=== PATIENT | male | born 1960 | race Caucasian/White ===

== ENCOUNTER 2025-05-14 00:46 | Inpatient (IN) ==
[2025-05-14] MEDS: ONDANSETRON INJ 2 MG/ML 2 ML VIAL IV STA (01:18)
[2025-05-14] MEDS: FAMOTIDINE 20MG IV PUSH 20 MG/5 ML SYR IV STA (01:22)
--- NOTE | 2025-05-14 01:23 | Emergency Department Note ---
History of Present Illness General Chief complaint: Abdominal Pain Stated complaint: Abdominal Pain Time Seen by Provider: 05/14/25 00:56 History of Present Illness This 64-year-old male presents to the ER complaining of severe abdominal pain and distention. Patient has not been here before. He states he does not take any medicines and does not go to the doctor. He denies any known liver disease. I did ask about alcohol use and does not want to talk about it. No tobacco use. Patient denies chest pain, dyspnea, fever, chills, flulike illness. Home Medications Medication Instructions Recorded Confirmed Type No Known Home Medications 05/14/25 05/14/25 History Allergies Allergy/AdvReac Type Severity Reaction Status Date / Time No Known Allergies Allergy Unknown Verified 05/14/25 03:49 Past Med/Surg History Problem List (Updated 05/14/25 @ 03:33 by Erika Parra PA-C) Pleural effusion (Acute) Abdominal pain, acute (Acute) Cirrhosis of liver with ascites (Acute) Social History Smoking Status: Never smoker Feels Safe at Home: Yes Review of Systems A total of 10 systems reviewed and were otherwise negative Physical Exam Vital Signs Vital Signs - 24 hr 05/14/25 00:51 05/14/25 00:54 05/14/25 01:00 Pulse Rate 87 88 Pulse Rate from SpO2 Sensor 89 88 Pulse Rhythm Pulse Strength Respiratory Rate 20 22 Respiratory Effort / Characteristics Respiratory Depth Respiratory Pattern Blood Pressure 113/74 Blood Pressure Mean 98 Blood Pressure Position Pulse Oximetry 95 93 Oxygen Delivery Method Sepsis Recent Fever Within 48 Hours Sepsis New/Unexplained Change in Mental Status Sepsis Action Taken by Nursing 05/14/25 01:03 05/14/25 01:10 05/14/25 01:12 Pulse Rate 89 87 Pulse Rate from SpO2 Sensor 88 Pulse Rhythm Regular Pulse Strength Normal Respiratory Rate 20 19 Respiratory Effort / Characteristics Non-Labored Spontaneous Respiratory Depth Normal Respiratory Pattern Regular Blood Pressure 113/74 Blood Pressure Mean 87 Blood Pressure Position Sitting Pulse Oximetry 93 93 93 Oxygen Delivery Method Room Air Room Air Sepsis Recent Fever Within 48 Hours No Sepsis New/Unexplained Change in Mental Status No Sepsis Action Taken by Nursing No Action Required 05/14/25 01:21 05/14/25 01:30 05/14/25 01:48 Pulse Rate 86 81 Pulse Rate from SpO2 Sensor 87 89 82 Pulse Rhythm Pulse Strength Respiratory Rate 18 16 20 Respiratory Effort / Characteristics Respiratory Depth Respiratory Pattern Blood Pressure Blood Pressure Mean Blood Pressure Position Pulse Oximetry 93 95 93 Oxygen Delivery Method Sepsis Recent Fever Within 48 Hours Sepsis New/Unexplained Change in Mental Status Sepsis Action Taken by Nursing 05/14/25 01:50 05/14/25 01:51 05/14/25 02:00 Pulse Rate 80 81 Pulse Rate from SpO2 Sensor 82 80 Pulse Rhythm Pulse Strength Respiratory Rate 17 21 Respiratory Effort / Characteristics Respiratory Depth Respiratory Pattern Blood Pressure 114/75 111/72 Blood Pressure Mean 87 85 Blood Pressure Position Pulse Oximetry 92 94 Oxygen Delivery Method Sepsis Recent Fever Within 48 Hours Sepsis New/Unexplained Change in Mental Status Sepsis Action Taken by Nursing 05/14/25 02:12 05/14/25 02:21 05/14/25 02:30 Pulse Rate 82 82 82 Pulse Rate from SpO2 Sensor 82 82 82 Pulse Rhythm Pulse Strength Respiratory Rate 19 21 22 Respiratory Effort / Characteristics Respiratory Depth Respiratory Pattern Blood Pressure 103/63 Blood Pressure Mean 76 Blood Pressure Position Pulse Oximetry 93 94 91 Oxygen Delivery Method Sepsis Recent Fever Within 48 Hours Sepsis New/Unexplained Change in Mental Status Sepsis Action Taken by Nursing 05/14/25 02:42 05/14/25 02:51 05/14/25 03:00 Pulse Rate 83 81 84 Pulse Rate from SpO2 Sensor 81 81 85 Pulse Rhythm Pulse Strength Respiratory Rate 22 26 H 23 Respiratory Effort / Characteristics Respiratory Depth Respiratory Pattern Blood Pressure 112/84 Blood Pressure Mean 93 Blood Pressure Position Pulse Oximetry 92 92 94 Oxygen Delivery Method Sepsis Recent Fever Within 48 Hours Sepsis New/Unexplained Change in Mental Status Sepsis Action Taken by Nursing VITALS: Vitals are noted on the nurse's note and reviewed by myself. Vital signs stable. GENERAL: White male pale, in no acute distress, nondiaphoretic, SKIN: Capillary reflex less than 2 seconds. HEENT: Normocephalic. PERRLA. EOMI. Nares patent. Mucous membranes moist. Neck is supple without nuchal rigidity. HEART: Regular rate and rhythm LUNGS: Clear to auscultation bilaterally without wheezes, rales or rhonchi. No retractions or accessory muscle use. ABDOMEN: Positive bowel sounds x 4. Normal tympanic percussion. Soft, distended with positive fluid wave tender to palpation, without masses or organomegaly. Lawrence sign negative. No guarding or rebound tenderness. no CVA tenderness MUSCULOSKELETAL: No gross musculoskeletal defects. NEURO: Patient was alert and oriented to person place and time. No focal neurological deficits. Course Administered Medications Fentanyl Citrate (Fentanyl Citrate Pf 100 Mcg/2 Ml Vial) 50 mcg IV Q15M PRN PRN Reason: Pain Stop: 05/28/25 01:02 Last Admin: 05/14/25 03:27 Dose: 50 mcg Documented By: Admin: 05/14/25 01:21 Dose: 50 mcg Documented By: ASHLY Albumin Human (Albumin 25%) 25 gm in 100 mls @ 50 mls/hr IV Q2H TEMO Stop: 05/14/25 06:59 Last Admin: 05/14/25 03:24 Dose: 50 mls/hr Documented By: ASHLY Discontinued Medications Furosemide (Furosemide Inj 20 Mg/2 Ml Vial) 20 mg IV ONE STA Stop: 05/14/25 03:32 Last Admin: 05/14/25 04:08 Dose: 20 mg Documented By: ASHLY Pantoprazole Sodium (Protonix) 40 mg in 10 mls @ 5 mls/min IV NOW ONE Stop: 05/14/25 01:04 Last Admin: 05/14/25 01:24 Dose: 5 mls/min Documented By: ASHLY Famotidine (Pepcid 20mg Iv Push) 20 mg in 5 mls @ 2.5 mls/min IV NOW STA Stop: 05/14/25 01:04 Last Admin: 05/14/25 01:22 Dose: 2.5 mls/min Documented By: ASHLY Ceftriaxone Sodium (Rocephin) 2,000 mg in 50 mls @ 100 mls/hr IV NOW STA Stop: 05/14/25 01:32 Last Infusion: 05/14/25 03:08 Dose: Infused Documented By: Admin: 05/14/25 01:27 Dose: 100 mls/hr Documented By: ASHLY Thiamine HCl 100 mg/ Syringe 10 mls @ 2 mls/min IV NOW STA Stop: 05/14/25 03:35 Last Admin: 05/14/25 04:08 Dose: 2 mls/min Documented By: ASHLY Ioversol (Optiray 320 125ml) 125 ml IV ONCE ONE Stop: 05/14/25 01:50 Last Admin: 05/14/25 01:49 Dose: 118 ml Documented By: MOHAN Ondansetron HCl (Ondansetron Inj 2 Mg/Ml 2 Ml Vial) 4 mg IV NOW STA Stop: 05/14/25 01:04 Last Admin: 05/14/25 01:18 Dose: 4 mg Documented By: ASHLY Medical Decision Making Medical Records Attestation: I reviewed the patient's medical records. Home Medications Current Medication List: was personally reviewed by me Laboratory Data Attestation: I reviewed the patient's lab results. 05/14/25 01:04 05/14/25 01:04 Lab Results 05/14/25 05/14/25 05/14/25 Range/Units 01:04 01:13 01:16 WBC 2.91 L (4.8-10.8) K/ul RBC 3.32 L (4.70-6.10) M/uL Hgb 10.7 L (14.0-18.0) g/dL POC Hgb 10.5 L (14.0-18.0) g/dl Hct 31.6 L (42.0-52.0) % POC Hct 31 L (42-52) % MCV 95.2 (80.0-100.0) fL MCH 32.2 (25.0-34.0) pg MCHC 33.9 (32.0-36.0) g/dL RDW Std Deviation 53.8 H (36.4-46.3) fL RDW Coeff of Shannan 15.7 H (11.5-14.5) % Plt Count 138 (130-400) K/uL MPV 8.9 L (9.4-12.4) fL Immature Gran % (Auto) 0.3 % Neut % (Auto) 55.1 % Lymph % (Auto) 29.2 % Dunn % (Auto) 12.0 % Eos % (Auto) 3.1 % Baso % (Auto) 0.3 % Neut # (Auto) 1.60 (1.40-6.50) K/uL Lymph # (Auto) 0.85 L (1.20-3.40) K/uL Dunn # (Auto) 0.35 (0.11-0.59) K/uL Eos # (Auto) 0.09 (0.00-0.50) K/uL Baso # (Auto) 0.01 (0.00-0.20) K/uL Immature Gran # (Auto) 0.01 (0.01-0.20) K/uL PT 12.4 H (9.0-12.0) Seconds INR 1.2 H (0.9-1.1) POC Sodium 135 (135-144) mmol/L Sodium 133 L (136-145) mmol/L POC Potassium 3.6 (3.3-5.0) mmol/L Potassium 3.7 (3.5-5.1) mmol/L POC Chloride 100 L (101-112) mmol/L Chloride 102 (98-107) mmol/L Carbon Dioxide 25 (21-32) mmol/L POC Total CO2 23 L (24-31) mmol/L Anion Gap 6 (3-11) POC Anion Gap 16.0 (16-25) mmol/L POC BUN 9 (7-18) mg/dl BUN 10 (6-23) mg/dl Creatinine 0.67 (0.6-1.4) mg/dl POC Creatinine 0.7 (0.6-1.3) mg/dl Est Cr Clr Drug Dosing 134.2 ml/min eGFR 104.91 BUN/Creatinine Ratio 14.9 (10-20) Glucose 104 H (70-99(Fasting)) mg/dl POC Glucose (other) 105 H (70-99) mg/dl Lactate 1.5 (0.4-2.0) mmol/L Calcium 8.8 (8.6-10.3) mg/dl POC Ioniz Calcium Enzo 1.13 (1.12-1.32) mmol/l Magnesium 1.8 (1.7-2.4) mg/dl Total Bilirubin 1.0 (0.2-1.0) mg/dl AST 26 (13-39) U/L ALT 11 (7-52) U/L Alkaline Phosphatase 69 (34-104) U/L Troponin I High Sens 3.7 (0-20) pg/ml Total Protein 6.9 (6.0-8.3) gm/dl Albumin 2.8 L (3.4-5.0) gm/dl Globulin 4.1 H (2.5-4.0) gm/dl Albumin/Globulin Ratio 0.7 L (0.9-2) Lipase 60 (11-82) U/L Procalcitonin 0.13 (0-0.5) ng/ml Ethyl Alcohol mg/dL (<10.0) mg/dl Blood Type B Negative Antibody Screen NEGATIVE 05/14/25 Range/Units 02:01 WBC (4.8-10.8) K/ul RBC (4.70-6.10) M/uL Hgb (14.0-18.0) g/dL POC Hgb (14.0-18.0) g/dl Hct (42.0-52.0) % POC Hct (42-52) % MCV (80.0-100.0) fL MCH (25.0-34.0) pg MCHC (32.0-36.0) g/dL RDW Std Deviation (36.4-46.3) fL RDW Coeff of Shannan (11.5-14.5) % Plt Count (130-400) K/uL MPV (9.4-12.4) fL Immature Gran % (Auto) % Neut % (Auto) % Lymph % (Auto) % Dunn % (Auto) % Eos % (Auto) % Baso % (Auto) % Neut # (Auto) (1.40-6.50) K/uL Lymph # (Auto) (1.20-3.40) K/uL Dunn # (Auto) (0.11-0.59) K/uL Eos # (Auto) (0.00-0.50) K/uL Baso # (Auto) (0.00-0.20) K/uL Immature Gran # (Auto) (0.01-0.20) K/uL PT (9.0-12.0) Seconds INR (0.9-1.1) POC Sodium (135-144) mmol/L Sodium (136-145) mmol/L POC Potassium (3.3-5.0) mmol/L Potassium (3.5-5.1) mmol/L POC Chloride (101-112) mmol/L Chloride (98-107) mmol/L Carbon Dioxide (21-32) mmol/L POC Total CO2 (24-31) mmol/L Anion Gap (3-11) POC Anion Gap (16-25) mmol/L POC BUN (7-18) mg/dl BUN (6-23) mg/dl Creatinine (0.6-1.4) mg/dl POC Creatinine (0.6-1.3) mg/dl Est Cr Clr Drug Dosing ml/min eGFR BUN/Creatinine Ratio (10-20) Glucose (70-99(Fasting)) mg/dl POC Glucose (other) (70-99) mg/dl Lactate (0.4-2.0) mmol/L Calcium (8.6-10.3) mg/dl POC Ioniz Calcium Enzo (1.12-1.32) mmol/l Magnesium (1.7-2.4) mg/dl Total Bilirubin (0.2-1.0) mg/dl AST (13-39) U/L ALT (7-52) U/L Alkaline Phosphatase (34-104) U/L Troponin I High Sens (0-20) pg/ml Total Protein (6.0-8.3) gm/dl Albumin (3.4-5.0) gm/dl Globulin (2.5-4.0) gm/dl Albumin/Globulin Ratio (0.9-2) Lipase (11-82) U/L Procalcitonin (0-0.5) ng/ml Ethyl Alcohol mg/dL < 10.0 (<10.0) mg/dl Blood Type Antibody Screen Imaging Data Attestation: I personally reviewed and interpreted this imaging study as follows: Radiologist's Impression: Abdomen/Pelvis CT 05/14/25 01:04 EXAM: CT abd pelvis IV con only CLINICAL HISTORY: severe abd pain TECHNIQUE: Contiguous axial images were obtained from the level of the diaphragm to the pubic symphysis with intravenous contrast. Coronal and sagittal reconstructions were likewise performed and indicated to increase the sensitivity for detecting clinically relevant pathology. If IV contrast material had not been administered, the likelihood of detecting abnormalities relevant to the patient's condition would have been substantially decreased. CT scan was performed according to ALARA (as low as reasonably achievable). COMPARISON: None. FINDINGS: Gross left pleural effusion with collapse of left lower lobes are seen. The liver appears relatively smaller in size and shows hypertrophied caudate lobe. It shows mild heterogeneous parenchyma with irregular nodular surface. Portal vein appears dilated with multiple collaterals are noted adjacent to the perigastric/peripancreatic space and its splenic hilum - suggestive of portal hypertension. The spleen appears enlarged in size measures about 16 cm Gross ascites with diffuse mesenteric congestion seen. Large umbilical hernia containing ascitic fluid. Bilateral inguinal hernia containing ascitic fluid. Enlarged prostate. The gallbladder is present. The pancreas, and adrenal glands are unremarkable. The kidneys are normal in size and attenuation. There is no hydronephrosis or perinephric fat stranding. No renal calculi or renal masses are identified. The ureters are normal in caliber and no ureteral calculi are seen. The bladder is normal in contour. No focal or diffuse bowel wall thickening or evidence of bowel obstruction is identified. No imaging evidence of appendicitis. Abdominal and pelvic vasculature is patent. No aggressive appearing osseous lesions are identified. IMPRESSION: Gross left pleural effusion with collapse of left lower lobes are seen. Cirrhosis of liver with portal hypertension and gross ascites. Splenomegaly. Large umbilical hernia containing ascitic fluid. Bilateral inguinal hernia containing ascitic fluid. Enlarged prostate. Electronically signed by eJffry Garcia 05-14-2025 03:57 AM Chest CTA 05/14/25 01:32 EXAM: CT angio chest PE protocol CLINICAL HISTORY: PE TECHNIQUE: Contiguous axial images were obtained from the neck base through the upper abdomen following intravenous administration of iodinated contrast material. Angiographic images were processed, 3D MIP images were acquired for interpretation. If IV contrast material had not been administered, the likelihood of detecting abnormalities relevant to the patient's condition would have been substantially decreased. Coronal and sagittal 3-D MIPs were likewise performed and indicated to increase the sensitivity of detectin diffuse clinically relevant pathology. CT scan was performed according to ALARA (as low as reasonable achievable). COMPARISON: none. FINDINGS: Adequate contrast bolus without evidence of pulmonary embolism. The central airways are patent. Gross left sided pleural effusion with passive collapse of left lung and mediastinal shift toward right side is seen Right lung is clear. No pleural effusion on right side. Mild ectasia of ascending aorta measuring approximately 38 x 38 mm is seen The heart, and pulmonary arteries are of normal size and configuration. There are no appreciable coronary artery and few aortic atherosclerotic calcifications. No pericardial effusion is identified. The thyroid is unremarkable. No mediastinal, hilar, or axillary lymphadenopathy is noted. No suspicious lytic or sclerotic osseous lesions are identified. Degenerative changes in visualized spine. IMPRESSION: No evidence of pulmonary embolism Gross left sided pleural effusion with passive collapse of left lung and mediastinal shift toward right side is seen Gross ascites with mild surface nodularity of liver in visualized portion of abdomen - suggest CT abdomen for complete evaluation and lab correlation for possible chronic liver parenchymal disease Electronically signed by Jeffry Garcia 05-14-2025 02:44 AM [facility] Narrative Prior records/ancillary studies reviewed. Triage Nursing notes reviewed. Additional history obtained from EMS. The patient's history was concerning for abdominal pain. Differential diagnosis: Etiologies such as spontaneous bacterial peritonitis, ascites, liver disease, appendicitis, diverticulitis, PUD, biliary pathology, UTI, pancreatitis, obstruction, mesenteric ischemia, aortic pathology, infections, inflammatory bowel disease, renal colic, as well as others were entertained. Physical examination findings: As above. ER treatment provided: An order was placed for continuous cardiac monitoring. The monitor shows a rate of 60-100 with a sinus rhythm per my Independent interpretation. Rocephin was ordered for possible SBP, Protonix, Pepcid, Zofran and morphine were ordered I did request the records from [place] and did review them. Patient had 6 L of ascites drained at his last admission. Patient states he is on no current medications but he has a long list of medicines per the [facility] report. Albumin was ordered On reassessment the patient felt better. Diagnostics interpreted by me: ECG: Ordered for upper abdominal pain EKG: Normal sinus, poor baseline, no acute ST-T wave changes, rate 88. Impression normal sinus rhythm independently interpreted by myself The labs Independently Interpreted by myself revealed anemia most likely related to his his cirrhosis. Per chart review in the [place] system he does have hepatitis and cirrhosis. Glucose 104 negative procalcitonin. Negative lactic Imaging studies: Imaging was reviewed and read by radiology Consultation: A consultation was placed with the hospitalist. The case was discussed and diagnostics were reviewed. The patient was evaluated in the ER for further treatment. Exam and history seem consistent with ascites with concerns for possible SBP with pleural effusions. This is recurrent per chart review in the [place] system. Patient had paracentesis 2 months ago at [place]. He was not forthcoming with this. I did specifically ask him if he has had this procedure before and told me no. He was tender on exam so he was given antibiotics for possible SBP. Medicine was consulted and the case was discussed. He will be admitted to the medical service.By the evaluation outlined above emergent etiologies such as appendicitis, diverticulitis, PUD, biliary pathology, UTI, pancreatitis, obstruction, mesenteric ischemia, aortic pathology, inflammatory bowel disease, renal colic, as well as others were deemed relatively unlikely. The pt informed about the findings as listed above. All questions were answered and pleased with the treatment. The chart was completed utilizing [employer] Speech voice recognition software. Grammatical errors, random word insertions, pronoun errors, and incomplete sentences are an occassional consequence of this system due to software limitations, ambient noise, and hardware issues. Any formal questions or concerns about the content, text, or information contained within the body of this dictation should be directly addressed to the physician vector control assistant for clarification. Impression & Plan Cirrhosis of liver with ascites, Abdominal pain, acute, Pleural effusion Discharge Plan Visit Data Chief Complaint: Abdominal Pain Stated Complaint: Abdominal Pain ED Provider: Nikki Clemente ED Midlevel Provider: Erika Parra Discharge Problem: Cirrhosis of liver with ascites, Abdominal pain, acute, Pleural effusion Patient Disposition: Admitted As Inpatient Condition: Fair Forms Stand Alone Forms: [employer] Prescriptions Prescriptions: No Action No Known Home Medications Referrals Referrals: PCP,NO [Primary Care Provider] - Discharge Problem: Cirrhosis of liver with ascites Qualifiers: Hepatic cirrhosis type: unspecified hepatic cirrhosis Qualified Code(s): K74.60 - Unspecified cirrhosis of liver
[2025-05-14] MEDS: PANTOprazole 40 MG/10 ML SYR IV ONE (01:24)
[2025-05-14] MEDS: cefTRIAXone SODIUM 2,000 MG/50 ML BAG IV STA (01:27)
[2025-05-14 01:43] LABS: Hematocrit (blood only) 31.6 % (42.0-52.0); Hemoglobin 10.7 g/dL (14.0-18.0); Immature Granulocytes # (auto) 0.01 K/uL (0.01-0.20); Immature Granulocytes % (auto) 0.3 %; Mean Corpuscular Hemoglobin 32.2 pg (25.0-34.0); Mean Corpuscular Volume 95.2 fL (80.0-100.0); Platelet Count 138 K/uL (130-400); RDW Standard Deviation 53.8 fL (36.4-46.3); Red Blood Count 3.32 M/uL (4.70-6.10); White Blood Count 2.91 K/ul (4.8-10.8)
[2025-05-14] MEDS: OPTIRAY 320 125ml IV ONE (01:49)
[2025-05-14 02:00] LABS: Alanine Aminotransferase 11.0 U/L (7-52); Albumin Globulin Ratio 0.7 (0.9-2); Albumin Level 2.8 gm/dl (3.4-5.0); Alkaline Phosphatase 69.0 U/L (34-104); Anion Gap 6.0 (3-11); Bilirubin,Total 1.0 mg/dl (0.2-1.0); Blood Urea Nitrogen 10.0 mg/dl (6-23); Calcium 8.8 mg/dl (8.6-10.3); Carbon Dioxide 25.0 mmol/L (21-32); Chloride 102.0 mmol/L (98-107); Creatinine Clr Calc Pharmacy 134.2 ml/min; Globulin 4.1 gm/dl (2.5-4.0); Glucose 104.0 mg/dl (70-99(Fasting)); Lipase 60.0 U/L (11-82); Magnesium 1.8 mg/dl (1.7-2.4); Potassium 3.7 mmol/L (3.5-5.1); Sodium 133.0 mmol/L (136-145); Total Protein 6.9 gm/dl (6.0-8.3)
--- NOTE | 2025-05-14 02:44 | CT Scan Report ---
EXAM: CT angio chest PE protocol CLINICAL HISTORY: PE TECHNIQUE: Contiguous axial images were obtained from the neck base through the upper abdomen following intravenous administration of iodinated contrast material. Angiographic images were processed, 3D MIP images were acquired for interpretation. If IV contrast material had not been administered, the likelihood of detecting abnormalities relevant to the patient's condition would have been substantially decreased. Coronal and sagittal 3-D MIPs were likewise performed and indicated to increase the sensitivity of detectin diffuse clinically relevant pathology. CT scan was performed according to ALARA (as low as reasonable achievable). COMPARISON: none. FINDINGS: Adequate contrast bolus without evidence of pulmonary embolism. The central airways are patent. Gross left sided pleural effusion with passive collapse of left lung and mediastinal shift toward right side is seen Right lung is clear. No pleural effusion on right side. Mild ectasia of ascending aorta measuring approximately 38 x 38 mm is seen The heart, and pulmonary arteries are of normal size and configuration. There are no appreciable coronary artery and few aortic atherosclerotic calcifications. No pericardial effusion is identified. The thyroid is unremarkable. No mediastinal, hilar, or axillary lymphadenopathy is noted. No suspicious lytic or sclerotic osseous lesions are identified. Degenerative changes in visualized spine. IMPRESSION: No evidence of pulmonary embolism Gross left sided pleural effusion with passive collapse of left lung and mediastinal shift toward right side is seen Gross ascites with mild surface nodularity of liver in visualized portion of abdomen - suggest CT abdomen for complete evaluation and lab correlation for possible chronic liver parenchymal disease Electronically signed by Jeffry Garcia 05-14-2025 02:44 AM
[2025-05-14] MEDS: ALBUMIN 25% 25 GM/100 ML VIAL IV SCH (03:24)
--- NOTE | 2025-05-14 03:30 | History & Physical Report ---
Date of Service May 14, 2025 Assessment & Plan (1) SOB (shortness of breath): Plan: Assessment and plan below following discussion of case with ED provider and reviewing patient history/pertinent normal/abnormal diagnostic test results. 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 hydrothorax hypertension, stable not on maintenance medications hyperlipidemia as per records history of PE/DVT (factor V Leiden mutation as per records), status post Xarelto SMV thrombosis as per records GERD, not on maintenance medications DM 2 currently diet controlled, well-controlled remote hemoglobin A1c of 5.5 from 2021 Acute on chronic anemia, hx chronic pancytopenia likely secondary to liver disease (mild hemoglobin drop from baseline, patient denies overt bleeding symptoms) past alcohol abuse Ongoing tobacco abuse (chewing) Admit to med/tele Diuretic Rx Diagnostic and therapeutic paracentesis Ceftriaxone and albumin for now for possible SBP GI consult re: decompensated cirrhosis Pulmonology consult re: recurrent left pleural effusion ISS BG goal 110-140, carb count coverage, update hemoglobin A1c DVT prophylaxis. SCDs Re: Thrombocytopenia Full code Text document was generated using [employer] voice recognition software. It may contain grammatical or spelling errors. Kindly contact undersigned for clarification of any documentation item in question. History of Present Illness Chief Complaint: Shortness of breath, abdominal pain/distention Primary Care Provider: NO PCP History obtained from patient and records. Medical history significant for hypertension, hyperlipidemia, history of PE/DVT status post Xarelto, SMV thrombosis as per records, factor V Leiden mutation as per records, alcoholic cirrhosis, portal hypertension, GERD, DM 2 currently diet controlled, chronic pancytopenia (baseline hemoglobin of 11), mood disorder, past alcohol abuse, current tobacco chewing, medical noncompliance. Patient has not seen PCP or taken home medications for about 2 years now due to financial constraints. Recent admitted at [facility] last March 20-2024 for decompensated cirrhosis presenting as massive ascites and large left pleural effusion. Large-volume paracenteses (6 L) and thoracenteses done as per report. Fluid analysis results unknown to patient. TTE showed no pericardial effusion and ejection fraction of 65%. Patient claims he was discharged home without home meds and explanation for reason for fluid accumulation. Last week, patient noted increasing painful abdominal distention associated with SOB. No unusual cough symptoms. No fever, no chills. Denies chest pain. Denies black or bloody stools. Last EtOH intake was years ago as per patient. EMS called to patient's home. O2 sats 88 on room air. IV Lasix, ceftriaxone and albumin administered at the ER. Medical History as above Surgical History : Knee surgery, appendectomy, tonsillectomy, hip replacement, tonsillectomy/adenoidectomy, back surgery, Family History : Heart disease, Crohn's disease, leukemia Personal/Social history : Tobacco chewing, past alcohol abuse, retired from heavy machinery equipment operation Allergies Allergy/AdvReac Type Severity Reaction Status Date / Time No Known Allergies Allergy Unknown Verified 05/14/25 03:49 Home Medications Medication Instructions Recorded Confirmed Type No Known Home Medications 05/14/25 05/14/25 History Past Med/Surg History Problem List (Updated 05/14/25 @ 05:38 by Godwin Spring MD) SOB (shortness of breath) Pleural effusion (Acute) Abdominal pain, acute (Acute) Cirrhosis of liver with ascites (Acute) Social History Smoking Status: Never smoker Tobacco Type: Smokeless Tobacco (Dip or Chew) Hx Alcohol Use: Yes Alcohol type: other Hx Substance Use: No Preferred Language: Czech Communication Ability: Effective Chief Information Officer Required: No Beliefs That Will Affect Care: None Current Living Situation: Spouse Current Living Situation Comment: with Feels Safe at Home: Yes Safety Concerns: Feels Safe At This Time Assistive Devices: None Review of Systems Review of Systems: As per HPI, all other systems reviewed and negative Physical Exam Physical Exam: GENERAL: Slightly uncomfortable, no respiratory distress SKIN: Pallor, warm HEENT: Pale palpebral conjunctivae, no ptosis, dry buccal mucosa NECK : Supple, no tenderness CHEST : Decreased breath sounds, no tenderness HEART : RRR, no obvious murmurs ABDOMEN: Marked abdominal distention, central abdominal tenderness, positive fluid wave EXTREMITIES : No LE swelling/tenderness, palpable pulses, no other conspicuous deformities noted NEUROLOGIC : Coherent, no facial asymmetry, no other gross focality Results & Data Results & Data Vital Signs (Past 12 Hours) Vital Signs Pulse Resp BP Pulse Ox O2 Del Method 05/14/25 03:00 84 23 112/84 94 05/14/25 02:51 81 26 H 92 05/14/25 02:42 83 22 92 05/14/25 02:30 82 22 103/63 91 05/14/25 02:21 82 21 94 05/14/25 02:12 82 19 93 05/14/25 02:00 81 21 111/72 94 05/14/25 01:51 80 17 92 05/14/25 01:50 114/75 05/14/25 01:48 81 20 93 05/14/25 01:30 16 95 05/14/25 01:21 86 18 93 05/14/25 01:12 87 19 93 05/14/25 01:10 93 Room Air 05/14/25 01:03 89 20 113/74 93 Room Air 05/14/25 01:00 88 22 93 05/14/25 00:54 87 20 95 05/14/25 00:51 113/74 Laboratory Results Laboratory Results WBC 2.91 K/ul (4.8-10.8) L 05/14/25 01:04 RBC 3.32 M/uL (4.70-6.10) L 05/14/25 01:04 Hgb 10.7 g/dL (14.0-18.0) L 05/14/25 01:04 POC Hgb 10.5 g/dl (14.0-18.0) L 05/14/25 01:13 Hct 31.6 % (42.0-52.0) L 05/14/25 01:04 POC Hct 31 % (42-52) L 05/14/25 01:13 MCV 95.2 fL (80.0-100.0) 05/14/25 01:04 MCH 32.2 pg (25.0-34.0) 05/14/25 01:04 MCHC 33.9 g/dL (32.0-36.0) 05/14/25 01:04 RDW Std Deviation 53.8 fL (36.4-46.3) H 05/14/25 01:04 RDW Coeff of Shannan 15.7 % (11.5-14.5) H 05/14/25 01:04 Plt Count 138 K/uL (130-400) 05/14/25 01:04 MPV 8.9 fL (9.4-12.4) L 05/14/25 01:04 Immature Gran % (Auto) 0.3 % 05/14/25 01:04 Neut % (Auto) 55.1 % 05/14/25 01:04 Lymph % (Auto) 29.2 % 05/14/25 01:04 [place] % (Auto) 12.0 % 05/14/25 01:04 Eos % (Auto) 3.1 % 05/14/25 01:04 Baso % (Auto) 0.3 % 05/14/25 01:04 Neut # (Auto) 1.60 K/uL (1.40-6.50) 05/14/25 01:04 Lymph # (Auto) 0.85 K/uL (1.20-3.40) L 05/14/25 01:04 [place] # (Auto) 0.35 K/uL (0.11-0.59) 05/14/25 01:04 Eos # (Auto) 0.09 K/uL (0.00-0.50) 05/14/25 01:04 Baso # (Auto) 0.01 K/uL (0.00-0.20) 05/14/25 01:04 Immature Gran # (Auto) 0.01 K/uL (0.01-0.20) 05/14/25 01:04 POC Sodium 135 mmol/L (135-144) 05/14/25 01:13 Sodium 133 mmol/L (136-145) L 05/14/25 01:04 POC Potassium 3.6 mmol/L (3.3-5.0) 05/14/25 01:13 Potassium 3.7 mmol/L (3.5-5.1) 05/14/25 01:04 POC Chloride 100 mmol/L (101-112) L 05/14/25 01:13 Chloride 102 mmol/L (98-107) 05/14/25 01:04 Carbon Dioxide 25 mmol/L (21-32) 05/14/25 01:04 POC Total CO2 23 mmol/L (24-31) L 05/14/25 01:13 Anion Gap 6 (3-11) 05/14/25 01:04 POC Anion Gap 16.0 mmol/L (16-25) 05/14/25 01:13 POC BUN 9 mg/dl (7-18) 05/14/25 01:13 BUN 10 mg/dl (6-23) 05/14/25 01:04 Creatinine 0.67 mg/dl (0.6-1.4) 05/14/25 01:04 POC Creatinine 0.7 mg/dl (0.6-1.3) 05/14/25 01:13 Est Cr Clr Drug Dosing 134.2 ml/min 05/14/25 01:04 eGFR 104.91 05/14/25 01:04 BUN/Creatinine Ratio 14.9 (10-20) 05/14/25 01:04 Glucose 104 mg/dl (70-99(Fasting)) H 05/14/25 01:04 POC Glucose (other) 105 mg/dl (70-99) H 05/14/25 01:13 Lactate 1.5 mmol/L (0.4-2.0) 05/14/25 01:04 Calcium 8.8 mg/dl (8.6-10.3) 05/14/25 01:04 POC Ioniz Calcium Enzo 1.13 mmol/l (1.12-1.32) 05/14/25 01:13 Magnesium 1.8 mg/dl (1.7-2.4) 05/14/25 01:04 Total Bilirubin 1.0 mg/dl (0.2-1.0) 05/14/25 01:04 AST 26 U/L (13-39) 05/14/25 01:04 ALT 11 U/L (7-52) 05/14/25 01:04 Alkaline Phosphatase 69 U/L (34-104) 05/14/25 01:04 Troponin I High Sens 3.7 pg/ml (0-20) 05/14/25 01:04 Total Protein 6.9 gm/dl (6.0-8.3) 05/14/25 01:04 Albumin 2.8 gm/dl (3.4-5.0) L 05/14/25 01:04 Globulin 4.1 gm/dl (2.5-4.0) H 05/14/25 01:04 Albumin/Globulin Ratio 0.7 (0.9-2) L 05/14/25 01:04 Lipase 60 U/L (11-82) 05/14/25 01:04 Procalcitonin 0.13 ng/ml (0-0.5) 05/14/25 01:04 Ethyl Alcohol mg/dL < 10.0 mg/dl (<10.0) 05/14/25 02:01 Blood Type B Negative 05/14/25 01:16 Antibody Screen NEGATIVE 05/14/25 01:16 Impressions Chest CTA 05/14/25 01:32 EXAM: CT angio chest PE protocol CLINICAL HISTORY: PE TECHNIQUE: Contiguous axial images were obtained from the neck base through the upper abdomen following intravenous administration of iodinated contrast material. Angiographic images were processed, 3D MIP images were acquired for interpretation. If IV contrast material had not been administered, the likelihood of detecting abnormalities relevant to the patient's condition would have been substantially decreased. Coronal and sagittal 3-D MIPs were likewise performed and indicated to increase the sensitivity of detectin diffuse clinically relevant pathology. CT scan was performed according to ALARA (as low as reasonable achievable). COMPARISON: none. FINDINGS: Adequate contrast bolus without evidence of pulmonary embolism. The central airways are patent. Gross left sided pleural effusion with passive collapse of left lung and mediastinal shift toward right side is seen Right lung is clear. No pleural effusion on right side. Mild ectasia of ascending aorta measuring approximately 38 x 38 mm is seen The heart, and pulmonary arteries are of normal size and configuration. There are no appreciable coronary artery and few aortic atherosclerotic calcifications. No pericardial effusion is identified. The thyroid is unremarkable. No mediastinal, hilar, or axillary lymphadenopathy is noted. No suspicious lytic or sclerotic osseous lesions are identified. Degenerative changes in visualized spine. IMPRESSION: No evidence of pulmonary embolism Gross left sided pleural effusion with passive collapse of left lung and mediastinal shift toward right side is seen Gross ascites with mild surface nodularity of liver in visualized portion of abdomen - suggest CT abdomen for complete evaluation and lab correlation for possible chronic liver parenchymal disease Electronically signed by Jeffry Garcia 05-14-2025 02:[address] abdomen pelvis: Gross left pleural effusion with collapse of left lower lobes are seen. Cirrhosis of liver with portal hypertension and gross ascites. Splenomegaly. Large umbilical hernia containing ascitic fluid. Bilateral inguinal hernia containing ascitic fluid. Enlarged prostate. Diagnostic Findings EKG as per my interpretation :Rate 90, junctional rhythm, normal axis, nonspecific T wave abnormalities
[2025-05-14 03:44] LABS: INR 1.2 (0.9-1.1); Prothrombin Time 12.4 Seconds (9.0-12.0)
--- NOTE | 2025-05-14 03:58 | CT Scan Report ---
EXAM: CT abd pelvis IV con only CLINICAL HISTORY: severe abd pain TECHNIQUE: Contiguous axial images were obtained from the level of the diaphragm to the pubic symphysis with intravenous contrast. Coronal and sagittal reconstructions were likewise performed and indicated to increase the sensitivity for detecting clinically relevant pathology. If IV contrast material had not been administered, the likelihood of detecting abnormalities relevant to the patient's condition would have been substantially decreased. CT scan was performed according to ALARA (as low as reasonably achievable). COMPARISON: None. FINDINGS: Gross left pleural effusion with collapse of left lower lobes are seen. The liver appears relatively smaller in size and shows hypertrophied caudate lobe. It shows mild heterogeneous parenchyma with irregular nodular surface. Portal vein appears dilated with multiple collaterals are noted adjacent to the perigastric/peripancreatic space and its splenic hilum - suggestive of portal hypertension. The spleen appears enlarged in size measures about 16 cm Gross ascites with diffuse mesenteric congestion seen. Large umbilical hernia containing ascitic fluid. Bilateral inguinal hernia containing ascitic fluid. Enlarged prostate. The gallbladder is present. The pancreas, and adrenal glands are unremarkable. The kidneys are normal in size and attenuation. There is no hydronephrosis or perinephric fat stranding. No renal calculi or renal masses are identified. The ureters are normal in caliber and no ureteral calculi are seen. The bladder is normal in contour. No focal or diffuse bowel wall thickening or evidence of bowel obstruction is identified. No imaging evidence of appendicitis. Abdominal and pelvic vasculature is patent. No aggressive appearing osseous lesions are identified. IMPRESSION: Gross left pleural effusion with collapse of left lower lobes are seen. Cirrhosis of liver with portal hypertension and gross ascites. Splenomegaly. Large umbilical hernia containing ascitic fluid. Bilateral inguinal hernia containing ascitic fluid. Enlarged prostate. Electronically signed by Jeffry Garcia 05-14-2025 03:57 AM
[2025-05-14] MEDS: THIAMINE HCL 100 MG in SYRINGE 9 ML IV STA (04:08)
[2025-05-14] MEDS: FUROSEMIDE INJ 20 MG/2 ML VIAL IV STA (04:08)
[2025-05-14] MEDS ORDERED: PROMETHAZINE 6.25 MG/50.25 ML BAG IV PRN (04:16)
[2025-05-14] MEDS ORDERED: CARBOHYDRATES FOR HYPOGLYCEMIA PO PRN (05:10)
[2025-05-14] MEDS ORDERED: GLUCOSE 40% GEL 15 GM TUBE PO PRN (05:10)
[2025-05-14] MEDS ORDERED: DEXTROSE 50% 50 ML SYRINGE IV PRN (05:10)
[2025-05-14] MEDS ORDERED: GLUCAGON FOR INJ 1 MG VIAL SQ PRN (05:10)
[2025-05-14] MEDS ORDERED: GLUCOSE 10 TAB/TUBE PO PRN (05:10)
[2025-05-14] MEDS ORDERED: ALBUT/IPRATROP 3MG/0.5MG NEB 3 ML VIAL NEB PRN (05:29)
[2025-05-14 05:31] LABS: Appearance Urine Clear (Clear); Bacteria Urine Automated None Seen (None Seen); Cast Urine Automated 0-2 /lpf (0-2); Epithelial Cell Urine Auto 0-2 /hpf (0-2); Glucose Urine UA Negative (Negative); RBC Urine Automated 0-2 /hpf (0-2); WBC Urine Automated 0-5 /hpf (0-5)
[2025-05-14] MEDS: ALBUT/IPRATROP 3MG/0.5MG NEB 3 ML VIAL NEB STA (05:45)
[2025-05-14] MEDS: POTASSIUM CHLORIDE CRTAB 20 MEQ TABCR PO STA (05:51)
[2025-05-14] MEDS: INSULIN ASPART PER UNIT CHARGE SC SCH ×2 (05:54→18:31)
[2025-05-14] MEDS: NICOTINE 14 MG/24 HR PATCH TD SCH (06:34)
[2025-05-14] MEDS: ACETAMINOPHEN 500 MG TAB PO PRN (08:02)
[2025-05-14] MEDS: ALBUMIN 25% 25 GM/100 ML VIAL IV ONE (11:13)
--- NOTE | 2025-05-14 11:14 | Ultrasound Report ---
ULTRASOUND GUIDED PARACENTESIS CLINICAL HISTORY: ascites COMPARISON STUDY: None PROCEDURE: The risks, benefits, and alternatives to the procedure were discussed with the patient inc luding the risk of bleeding, infection and injury to adjacent structures. The patient agreed to the procedure and informed written consent was obtained. Following real-time ultrasound localization, the skin was prepped and draped. Following local anesthesia with Xylocaine, the sheath paracentesis need le was inserted and approximately 8 liters of straw-colored fluid was removed by vacuum suction. The patient tolerated the procedure well and no immediate complications were evident. IMPRESSION: Ultrasound-guided paracentesis with removal of 8 liters of ascites. ACT 112: Negative or not required by law. Electronically signed by: Yash Cagle M.D. 05/14/2025 11:13 AM
--- NOTE | 2025-05-14 11:45 | Pulmonary Consultation ---
Date of Consultation May 14, 2025 Assessment & Plan (1) Dyspnea on exertion: * Large left pleural effusion with contralateral shift of the mediastinum. 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 * Discussed with the patient potential for benefit from diagnostic/therapeutic thoracentesis. * Discussed pros and cons of Thoracentesis, and potential complications. He verbalized understanding and agreement. He understands that the fluid can come back. * He doesn't recall that he had a similar procedure previously. * Will plan on draining a maximum of 2 L today to avoid pulmonary edema. (3) Cirrhosis of liver with ascites: Hepatic cirrhosis type: unspecified hepatic cirrhosis Qualified Code(s): K74.60 - Unspecified cirrhosis of liver; R18.8 - Other ascites History of Present Illness Reason for Consultation: Pleural effusion Attending Physician: Naga Olmstead MD History of Present Illness The patient is a very pleasant 64-year-old male who presented to the ED with severe abdominal pain and distention. He reported that he had not previously sought care at this facility, did not take any medications, and had not seen a physician for several years due to financial constraints. He denied any known history of liver disease and was not forthcoming about his alcohol use. On review of systems performed by the admitting physician, the patient reported shortness of breath and abdominal pain/distention. He denied chest pain, cough, fever, chills, or gastrointestinal bleeding. He had a history of recurrent ascites and pleural effusion, with a recent admission at another hospital in March 2025 for decompensated cirrhosis, during which large-volume paracentesis and thoracentesis were performed. He had not been taking any home medications and had not followed up with a PCP. Physical examination in the ED revealed a pale, well-appearing male in no acute distress, with stable vital signs. The abdomen was soft, distended, and tender to palpation, with a positive fluid wave but no rebound or guarding. Lungs were clear to auscultation bilaterally, and the patient was alert and oriented. Laboratory studies demonstrated pancytopenia (WBC 2.91, Hgb 10.7, Plt 138), mild hyponatremia (Na 133), hypoalbuminemia (albumin 2.8), and mild hyperglycemia (glucose 104-105). Liver enzymes were within normal limits, but the albumin/globulin ratio was decreased. Coagulation studies showed a mildly elevated PT/INR. Imaging included a CT angiogram of the chest, which showed a gross left-sided pleural effusion with passive collapse of the left lung and mediastinal shift to the right, but no evidence of PE. CT of the abdomen and pelvis revealed cirrhosis with portal hypertension, gross ascites, splenomegaly, large umbilical and bilateral inguinal hernias containing ascitic fluid, and an enlarged prostate. He was admitted for further management, including diuretics, diagnostic and therapeutic paracentesis, and consultations with GI and pulmonology for decompensated cirrhosis and recurrent left pleural effusion. Past medical history included HTN, HLD, prior PE/DVT (with factor V Leiden mutation), SMV thrombosis, GERD, DM2 (diet controlled), chronic pancytopenia likely secondary to liver disease, mood disorder, past alcohol abuse, and ongoing tobacco chewing. He has a history of medical noncompliance and had not taken home medications for approximately two years. Note from 05/14/2025: The patient at this time denies dyspnea at rest, but gets easily winded from minimal exertion. He denies cough or sputum production. Allergies Allergy/AdvReac Type Severity Reaction Status Date / Time No Known Allergies Allergy Unknown Verified 05/14/25 03:49 Home Medications Medication Instructions Recorded Confirmed Type No Known Home Medications 05/14/25 05/14/25 History Patient History Social History Smoking Status: Never smoker Tobacco Type: Smokeless Tobacco (Dip or Chew) Hx Alcohol Use: Yes Alcohol type: other Hx Substance Use: No Preferred Language: Croatian Communication Ability: Effective Supervisor Fireworks Assembly Required: No Beliefs That Will Affect Care: None Current Living Situation: Spouse Current Living Situation Comment: with Feels Safe at Home: Yes Safety Concerns: Feels Safe At This Time Assistive Devices: None Review of Systems Review of Systems: All systems reviewed & are unremarkable except as noted in HPI & below Physical Exam Physical Exam: General: In no acute distress, breathing room-air. Skin: Warm and dry to touch. Noobvious lesions. Eyes: Anicteric.Noconjunctival hyperemia or exudates.No periorbital edema. ENT: No oral thrush. No oropharyngeal erythema or exudates. Neck: No palpable masses or adenopathy. Respiratory: Diffusely decreased breath sounds with dullness over the left hemithorax, no wheezing or crackles. Clear breath sounds over the right hemithorax.No use of accessory muscles and no prolonged exhalation. Cardiac: Distant sounds, regular rhythm, no murmurs, no gallops, no rubs; could not appreciate JV pulse elevation. GI: Distended with positive fluid-wave, nontender. Extremities No clubbing,no cyanosis,trace edema over lower extremities. Neuro: No gross motor deficits. Seems appropriate. No facial-droop. Speech is clear. Seems able to provide consent. Results & Data Results & Data Vital Signs (Past 12 Hours) Vital Signs Temp Pulse Pulse Resp BP BP BP 05/14/25 11:40 36.3 C L 83 18 101/64 05/14/25 08:51 05/14/25 07:40 36.4 C L 85 16 110/74 05/14/25 07:26 61 05/14/25 05:58 05/14/25 05:58 36.7 C 96 H 18 117/73 05/14/25 05:48 91 H 20 05/14/25 05:10 90 05/14/25 04:32 05/14/25 04:00 86 22 118/78 05/14/25 03:30 81 21 112/77 05/14/25 03:00 84 23 112/84 05/14/25 02:51 81 26 H 05/14/25 02:42 83 22 05/14/25 02:30 82 22 103/63 05/14/25 02:21 82 21 05/14/25 02:12 82 19 05/14/25 02:00 81 21 111/72 05/14/25 01:51 80 17 05/14/25 01:50 114/75 05/14/25 01:48 81 20 05/14/25 01:30 16 05/14/25 01:21 86 18 05/14/25 01:12 87 19 05/14/25 01:10 05/14/25 01:03 89 20 113/74 05/14/25 01:00 88 22 05/14/25 00:54 87 20 05/14/25 00:51 113/74 Pulse Ox O2 Del Method 05/14/25 11:40 94 Room Air 05/14/25 08:51 Room Air 05/14/25 07:40 94 Room Air 05/14/25 07:26 05/14/25 05:58 Room Air 05/14/25 05:58 93 Room Air 05/14/25 05:48 97 Room Air 05/14/25 05:10 05/14/25 04:32 Room Air 05/14/25 04:00 95 Room Air 05/14/25 03:30 93 Room Air 05/14/25 03:00 94 05/14/25 02:51 92 05/14/25 02:42 92 05/14/25 02:30 91 05/14/25 02:21 94 05/14/25 02:12 93 05/14/25 02:00 94 05/14/25 01:51 92 05/14/25 01:50 05/14/25 01:48 93 05/14/25 01:30 95 05/14/25 01:21 93 05/14/25 01:12 93 05/14/25 01:10 93 Room Air 05/14/25 01:03 93 Room Air 05/14/25 01:00 93 05/14/25 00:54 95 05/14/25 00:51 Laboratory Results 05/14/25 05/14/25 05/14/25 05:46 05:07 02:01 WBC RBC Hgb POC Hgb Hct POC Hct MCV MCH MCHC RDW Std Deviation RDW Coeff of Shannan Plt Count MPV Immature Gran % (Auto) Neut % (Auto) Lymph % (Auto) [place] % (Auto) Eos % (Auto) Baso % (Auto) Neut # (Auto) Lymph # (Auto) [place] # (Auto) Eos # (Auto) Baso # (Auto) Immature Gran # (Auto) PT INR POC Sodium Sodium POC Potassium Potassium POC Chloride Chloride Carbon Dioxide POC Total CO2 Anion Gap POC Anion Gap POC BUN BUN Creatinine POC Creatinine Est Cr Clr Drug Dosing eGFR BUN/Creatinine Ratio Glucose POC Glucose 107 H POC Glucose (other) Lactate Calcium POC Ioniz Calcium Enzo Magnesium Total Bilirubin AST ALT Alkaline Phosphatase Troponin I High Sens Total Protein Albumin Globulin Albumin/Globulin Ratio Lipase Procalcitonin Urine Color Yellow Urine Appearance Clear Urine pH 5.5 Ur Specific [place] > 1.045 H Urine Protein Trace H Urine Glucose (UA) Negative Urine Ketones Negative Urine Blood Negative Urine Nitrite Negative Urine Bilirubin Negative Urine Urobilinogen Negative Ur Leukocyte Esterase Negative Urine WBC (Auto) 0-5 Urine RBC (Auto) 0-2 U Hyaline Cast (Auto) 0-2 U Epithel Cells (Auto) 0-2 Urine Bacteria (Auto) None Seen Urine Comment Ethyl Alcohol mg/dL < 10.0 Blood Type Antibody Screen 05/14/25 05/14/25 05/14/25 01:16 01:13 01:04 WBC 2.91 L RBC 3.32 L Hgb 10.7 L POC Hgb 10.5 L Hct 31.6 L POC Hct 31 L MCV 95.2 MCH 32.2 MCHC 33.9 RDW Std Deviation 53.8 H RDW Coeff of Shannan 15.7 H Plt Count 138 MPV 8.9 L Immature Gran % (Auto) 0.3 Neut % (Auto) 55.1 Lymph % (Auto) 29.2 [place] % (Auto) 12.0 Eos % (Auto) 3.1 Baso % (Auto) 0.3 Neut # (Auto) 1.60 Lymph # (Auto) 0.85 L [place] # (Auto) 0.35 Eos # (Auto) 0.09 Baso # (Auto) 0.01 Immature Gran # (Auto) 0.01 PT 12.4 H INR 1.2 H POC Sodium 135 Sodium 133 L POC Potassium 3.6 Potassium 3.7 POC Chloride 100 L Chloride 102 Carbon Dioxide 25 POC Total CO2 23 L Anion Gap 6 POC Anion Gap 16.0 POC BUN 9 BUN 10 Creatinine 0.67 POC Creatinine 0.7 Est Cr Clr Drug Dosing 134.2 eGFR 104.91 BUN/Creatinine Ratio 14.9 Glucose 104 H POC Glucose POC Glucose (other) 105 H Lactate 1.5 Calcium 8.8 POC Ioniz Calcium Enzo 1.13 Magnesium 1.8 Total Bilirubin 1.0 AST 26 ALT 11 Alkaline Phosphatase 69 Troponin I High Sens 3.7 Total Protein 6.9 Albumin 2.8 L Globulin 4.1 H Albumin/Globulin Ratio 0.7 L Lipase 60 Procalcitonin 0.13 Urine Color Urine Appearance Urine pH Ur Specific [place] Urine Protein Urine Glucose (UA) Urine Ketones Urine Blood Urine Nitrite Urine Bilirubin Urine Urobilinogen Ur Leukocyte Esterase Urine WBC (Auto) Urine RBC (Auto) U Hyaline Cast (Auto) U Epithel Cells (Auto) Urine Bacteria (Auto) Urine Comment Ethyl Alcohol mg/dL Blood Type B Negative Antibody Screen NEGATIVE Diagnostic Findings Abdomen/Pelvis CT 05/14/25 01:04 EXAM: CT abd pelvis IV con only CLINICAL HISTORY: severe abd pain TECHNIQUE: Contiguous axial images were obtained from the level of the diaphragm to the pubic symphysis with intravenous contrast. Coronal and sagittal reconstructions were likewise performed and indicated to increase the sensitivity for detecting clinically relevant pathology. If IV contrast material had not been administered, the likelihood of detecting abnormalities relevant to the patient's condition would have been substantially decreased. CT scan was performed according to ALARA (as low as reasonably achievable). COMPARISON: None. FINDINGS: Gross left pleural effusion with collapse of left lower lobes are seen. The liver appears relatively smaller in size and shows hypertrophied caudate lobe. It shows mild heterogeneous parenchyma with irregular nodular surface. Portal vein appears dilated with multiple collaterals are noted adjacent to the perigastric/peripancreatic space and its splenic hilum - suggestive of portal hypertension. The spleen appears enlarged in size measures about 16 cm Gross ascites with diffuse mesenteric congestion seen. Large umbilical hernia containing ascitic fluid. Bilateral inguinal hernia containing ascitic fluid. Enlarged prostate. The gallbladder is present. The pancreas, and adrenal glands are unremarkable. The kidneys are normal in size and attenuation. There is no hydronephrosis or perinephric fat stranding. No renal calculi or renal masses are identified. The ureters are normal in caliber and no ureteral calculi are seen. The bladder is normal in contour. No focal or diffuse bowel wall thickening or evidence of bowel obstruction is identified. No imaging evidence of appendicitis. Abdominal and pelvic vasculature is patent. No aggressive appearing osseous lesions are identified. IMPRESSION: Gross left pleural effusion with collapse of left lower lobes are seen. Cirrhosis of liver with portal hypertension and gross ascites. Splenomegaly. Large umbilical hernia containing ascitic fluid. Bilateral inguinal hernia containing ascitic fluid. Enlarged prostate. Electronically signed by Jeffry Garcia 05-14-2025 03:57 AM Chest CTA 05/14/25 01:32 EXAM: CT angio chest PE protocol CLINICAL HISTORY: PE TECHNIQUE: Contiguous axial images were obtained from the neck base through the upper abdomen following intravenous administration of iodinated contrast material. Angiographic images were processed, 3D MIP images were acquired for interpretation. If IV contrast material had not been administered, the likelihood of detecting abnormalities relevant to the patient's condition would have been substantially decreased. Coronal and sagittal 3-D MIPs were likewise performed and indicated to increase the sensitivity of detectin diffuse clinically relevant pathology. CT scan was performed according to ALARA (as low as reasonable achievable). COMPARISON: none. FINDINGS: Adequate contrast bolus without evidence of pulmonary embolism. The central airways are patent. Gross left sided pleural effusion with passive collapse of left lung and mediastinal shift toward right side is seen Right lung is clear. No pleural effusion on right side. Mild ectasia of ascending aorta measuring approximately 38 x 38 mm is seen The heart, and pulmonary arteries are of normal size and configuration. There are no appreciable coronary artery and few aortic atherosclerotic calcifications. No pericardial effusion is identified. The thyroid is unremarkable. No mediastinal, hilar, or axillary lymphadenopathy is noted. No suspicious lytic or sclerotic osseous lesions are identified. Degenerative changes in visualized spine. IMPRESSION: No evidence of pulmonary embolism Gross left sided pleural effusion with passive collapse of left lung and mediastinal shift toward right side is seen Gross ascites with mild surface nodularity of liver in visualized portion of abdomen - suggest CT abdomen for complete evaluation and lab correlation for possible chronic liver parenchymal disease Electronically signed by Jeffry Garcia 05-14-2025 02:44 AM Paracentesis Ultrasound 05/14/25 08:00 ULTRASOUND GUIDED PARACENTESIS CLINICAL HISTORY: ascites COMPARISON STUDY: None PROCEDURE: The risks, benefits, and alternatives to the procedure were discussed with the patient including the risk of bleeding, infection and injury to adjacent structures. The patient agreed to the procedure and informed written consent was obtained. Following real-time ultrasound localization, the skin was prepped and draped. Following local anesthesia with Xylocaine, the sheath paracentesis needle was inserted and approximately 8 liters of straw-colored fluid was removed by vacuum suction. The patient tolerated the procedure well and no immediate complications were evident. IMPRESSION: Ultrasound-guided paracentesis with removal of 8 liters of ascites. ACT 112: Negative or not required by law. Electronically signed by: Yash Cagle M.D. 05/14/2025 11:13 AM Medications Administered Home Medications Medication Instructions Recorded Confirmed Last Taken No Known Home Medications 05/14/25 05/14/25 Unknown Active Medications Generic Name Dose Route Start Last Admin Trade Name Freq PRN Reason Stop Dose Admin Acetaminophen 500 mg 05/14/25 04:16 05/14/25 08:02 Acetaminophen 500 Mg Tab PO 06/13/25 04:15 500 mg Q6H PRN Administration fever/pain Albumin Human 25 gm in 100 mls @ 50 mls/hr 05/14/25 10:31 05/14/25 11:13 Albumin 25% IV 05/14/25 12:30 50 mls/hr ONE ONE Administration Insulin Aspart 0 units 05/14/25 06:00 05/14/25 05:54 Insulin Aspart Per Unit Charge SC 06/13/25 05:59 Not Given Q6 TEMO Nicotine 1 patch 05/14/25 06:05 05/14/25 06:34 Nicotine 14 Mg/24 Hr Patch TD 06/13/25 06:04 1 patch QAM TEMO Administration Oxycodone HCl 5 mg 05/14/25 04:16 05/14/25 08:02 Oxycodone Hcl Ir 5 Mg Tab (Immediate Release) PO 05/28/25 04:15 5 mg Q4H PRN Administration Pain PG Care Time/CCT Total # of Minutes Spent Total Time Spent with Patient: Total time spent is greater than 50% in coordination of care (as documented) at patient's floor/unit and/or counseling patient: 55 minutes Coding Level of Care Code 20406 IN/OBS CONSULT LVL 3,45M Diagnoses Dyspnea on exertion R06.09 Pleural effusion J90 Cirrhosis of liver with ascites K74.60; R18.8 Hepatic cirrhosis type: unspecified hepatic cirrhosis Time Spent (min) 55
[2025-05-14] MEDS ORDERED: Nursing to Pharmacy Communication SCH (12:00)
[2025-05-14] MEDS ORDERED: ALBUMIN 25% 25 GM/100 ML VIAL IV SCH (12:00)
[2025-05-14 12:28] LABS: Albumin Peritoneal Fluid < 1.5 gm/dl
[2025-05-14 12:47] LABS: Appearance Peritoneal Fluid Clear; Color Peritoneal Fluid Yellow; Lymphocytes, Fluid 52 %; Mono,Macrophage,Mesothelial 43 %; Neutrophils, Fluid 5 %; RBC Peritoneal Fluid Auto < 2000 /uL; WBC Peritoneal Fluid Auto 63 /ul (0-300)
--- NOTE | 2025-05-14 13:08 | Gastrointestinal Consultation ---
Date of Consultation May 14, 2025 Assessment & Plan (1) Cirrhosis of liver with ascites: Patient with decompensated cirrhosis and likely hepatic hydrothorax. 8 L removed on paracentesis today. Follow-up on fluid studies. Discussed that though his MELD is 8, his cirrhosis is very decompensated and he ultimately will need referred for outpatient hepatology evaluation at the time of discharge. 2 gm Na restricted diet. Supervising Physician Co-Signing Physician Notes I personally saw and examined the patient. I have reviewed the chart and agree with the documentation provided by the PRESS OPERATOR ASSISTANT including discussion about the as sessment, treatment and plan. Briefly, 64 yo male with HTN, HLD, PE/DVT, Factor V Leiden, GERD, DM2, mood disorder, tobacco abuse, alcoholic cirrhosis, portal HTN, and alcohol abuse coupled with medical noncompliance. He presented to the ED due to abdominal distention. He was recently admitted to [facility] in March for decompensated cirrhosis, ascites, and large left pleural effusion. He required paracentesis at that time. His MELD is only 8 but is not corroborate with his level of cirrhosis. He has decompensated cirrhosis with hepatic hydrothorax and ascites of significant amount. He needs to follow-up with hepatology to see if he is a transplant candidate, a TIPS candidate, as he is only 64 years old and has stopped drinking 2 years ago. I explained to him that despite the low number his liver is failing and he has significant symptoms. He was shocked by these comments but I explained that now is the time to think about transplant given his age rather than waiting. He will speak with his about this. His does not drive but he does have some social support at home. I explained that this would require a number of appointments. He is concerned about the cost related to transplant and his liver care. As far as management for current admission is concerned, he should be on a 2000 mg sodium diet we should Lasix 40 mg and Aldactone 100 mg. We should check his kidney function and his sodium while he is on this. He needs a dietary consult. He needs alpha-fetoprotein and ultrasound alternating with MRI or CT every 6 months. Outpatient he will need a colonoscopy and an endoscopy to evaluate for varices. His hepatitis serologies are pending. We have already made an outpatient appointment with hepatology for him and I explained this to him. History of Present Illness Reason for Consultation: Decompensated cirrhosis Attending Physician: Naga Olmstead MD History of Present Illness Patient is a 64 yo male with HTN, HLD, PE/DVT, Factor V Leiden, GERD, DM2, mood disorder, tobacco abuse, alcoholic cirrhosis, portal HTN, and alcohol abuse coupled with medical noncompliance. He presented to the ED due to abdominal distention. He was recently admitted to [facility] in March for decompensated cirrhosis, ascites, and large left pleural effusion. He required paracentesis at that time. It is unclear what he was advised to do after that hospitalization and I do not have records of that stay. Over the past 1 week, he notes significant abdominal distention and SOB. He is no longer drinking alcohol and reports it has been years since his last drink. In the ED, a CT of the abdomen/pelvis was performed: IMPRESSION: Gross left pleural effusion with collapse of left lower lobes are seen. Cirrhosis of liver with portal hypertension and gross ascites. Splenomegaly. Large umbilical hernia containing ascitic fluid. Bilateral inguinal hernia containing ascitic fluid. Enlarged prostate. MELD Score currently 8. Allergies Allergy/AdvReac Type Severity Reaction Status Date / Time No Known Allergies Allergy Unknown Verified 05/14/25 03:49 Home Medications Medication Instructions Recorded Confirmed Type No Known Home Medications 05/14/25 05/14/25 History Patient History Social History Smoking Status: Never smoker Tobacco Type: Smokeless Tobacco (Dip or Chew) Hx Alcohol Use: Yes Alcohol type: other Hx Substance Use: No Preferred Language: Gabonese Communication Ability: Effective Merchandising Stock Associate Required: No Beliefs That Will Affect Care: None Current Living Situation: Spouse Current Living Situation Comment: with Feels Safe at Home: Yes Safety Concerns: Feels Safe At This Time Assistive Devices: None Review of Systems Review of Systems: Other (Patient off floor during my rounds--at paracentesis) Physical Exam Constitutional: patient off floor during my rounds Results & Data Vital Signs (Past 12 Hours) Vital Signs Temp Pulse Pulse Resp BP BP BP 05/14/25 11:40 36.3 C L 83 18 101/64 05/14/25 08:51 05/14/25 07:40 36.4 C L 85 16 110/74 05/14/25 07:26 61 05/14/25 05:58 05/14/25 05:58 36.7 C 96 H 18 117/73 05/14/25 05:48 91 H 20 05/14/25 05:10 90 05/14/25 04:32 05/14/25 04:00 86 22 118/78 05/14/25 03:30 81 21 112/77 05/14/25 03:00 84 23 112/84 05/14/25 02:51 81 26 H 05/14/25 02:42 83 22 05/14/25 02:30 82 22 103/63 05/14/25 02:21 82 21 05/14/25 02:12 82 19 05/14/25 02:00 81 21 111/72 05/14/25 01:51 80 17 05/14/25 01:50 114/75 05/14/25 01:48 81 20 05/14/25 01:30 16 05/14/25 01:21 86 18 05/14/25 01:12 87 19 05/14/25 01:10 05/14/25 01:03 89 20 113/74 Pulse Ox O2 Del Method 05/14/25 11:40 94 Room Air 05/14/25 08:51 Room Air 05/14/25 07:40 94 Room Air 05/14/25 07:26 05/14/25 05:58 Room Air 05/14/25 05:58 93 Room Air 05/14/25 05:48 97 Room Air 05/14/25 05:10 05/14/25 04:32 Room Air 05/14/25 04:00 95 Room Air 05/14/25 03:30 93 Room Air 05/14/25 03:00 94 05/14/25 02:51 92 05/14/25 02:42 92 05/14/25 02:30 91 05/14/25 02:21 94 05/14/25 02:12 93 05/14/25 02:00 94 05/14/25 01:51 92 05/14/25 01:50 05/14/25 01:48 93 05/14/25 01:30 95 05/14/25 01:21 93 05/14/25 01:12 93 05/14/25 01:10 93 Room Air 05/14/25 01:03 93 Room Air PG Care Time/CCT Total # of Minutes Spent Total Time Spent with Patient: Total time spent is greater than 50% in coordination of care (as documented) at patient's floor/unit and/or counseling patient: Coding Level of Care Code 25672 IN/OBS CONSULT LVL 4,60M Diagnoses Cirrhosis of liver with ascites K74.60; R18.8 Hepatic cirrhosis type: unspecified hepatic cirrhosis (1) Cirrhosis of liver with ascites Hepatic cirrhosis type: unspecified hepatic cirrhosis Qualified Code(s): K74.60 - Unspecified cirrhosis of liver; R18.8 - Other ascites
--- NOTE | 2025-05-14 13:32 | Procedure Note ---
Procedure Note Date of Service May 14, 2025 Principal Law Clerk: Segundo Lo MD. Indication: Symptomatic Pleural effusion Consent: Signed by patient and verified with time-out prior to procedure Anesthesia: 1% lidocaine without epinephrine local 10 cc. Procedure: Diagnostic therapeutic ultrasound-guided catheter left thoracentesis Consent was verified and time-out performed. Appropriate imaging studies were reviewed prior to the procedure. Patient was placed in a seated position and limited thoracic ultrasound was performed of the Left hemithorax. Appropriate site above the diaphragm for thoracentesis was selected. The skin was prepped and draped in normal sterile fashion. Lidocaine was used for local analgesia. Fluid was aspirated via the finder-anesthetic needle. A small skin madan was made with the scalpel and the catheter over the needle apparatus was advanced over the rib into the pleural space. Using the syringe one-way valve system, a total of 2000 mL of lorenzo-colored fluid were removed. Procedure was terminated due to reaching predetermined intended amount to be drained. The catheter was removed and observed to be intact. A sterile dressing was applied. Post procedure chest x-ray was ordered. Fluid was sent for labs, culture and cytology. Complications: None. Patient reported some chest tightness and had some cough right at the end of the procedure. Blood loss: minimal. [facility] [place]odes (Charges) Pulmonary/Thoracic Procedure 1: Pulmonary and Thoracic: 86712 Thoracentesis w/o imaging Coding CPT Codes Pulmonary/Thoracic - Pulmonary and Thoracic: 18672 Thoracentesis w/o imaging ([id number]) Additional Codes Date of Service (PG.SURGERY)
--- NOTE | 2025-05-14 13:50 | XRay Report ---
XR chest 1V portable CLINICAL HISTORY: Post left thoracentesis COMPARISON STUDY: CT earlier today. FINDINGS: There is a large left pleural effusion and consolidation at the left mid and lower lung, im proved. Skinfold artifact overlies the chest bilaterally. No pneumothorax seen. No consolidation or p leural effusion on the right. IMPRESSION: No pneumothorax seen. ACT 112: Negative or not required by law. Electronically signed by: Yash Cagle M.D. 05/14/2025 1:49 PM
[2025-05-14 14:30] LABS: Appearance Pleural Fluid Clear; Color Pleural Fluid Yellow; RBC Pleural Fluid Auto 2000 /uL; Source Pleural Fluid Left Lung; WBC Pleural Fluid Auto 68 /uL
--- NOTE | 2025-05-14 14:31 | Hospitalist Progress Note ---
Date of Service May 14, 2025 Assessment & Plan (1) SOB (shortness of breath): Plan: per admitting service notes with addendum: Assessment and plan below following discussion of case with ED provider and reviewing patient history/pertinent normal/abnormal diagnostic test results. 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 -- CT Chest, abdomen and pelvis noted -- status post paracentesis, 8 L removed, Ascites fluid studies and culture pending third dose of albumin to be given after paracentesis, total of 75 g given today -- status post paracentesis, 2 L removed, pleural fluid studies and culture pending -- Continue IV ceftriaxone GI consulted will need furosemide, spironolactone hypertension, stable not on maintenance medications hyperlipidemia as per records history of PE/DVT (factor V Leiden mutation as per records), status post Xarelto SMV thrombosis as per records GERD, not on maintenance medications DM 2 currently diet controlled, well-controlled remote hemoglobin A1c of 5.5 from 2021 Acute on chronic anemia, hx chronic pancytopenia likely secondary to liver disease (mild hemoglobin drop from baseline, patient denies overt bleeding symptoms) past alcohol abuse Ongoing tobacco abuse (chewing) DVT prophylaxis. SCDs Re: Thrombocytopenia Full code disposition Admitted to [facility] Lives at home Admission and Anticipated Discharge Date Admission Date: May 14, 2025 Subjective Seen resting in bed, sitting up, comfortable, very pleasant Just completed paracentesis states breathing has improved compared yesterday Denies abdominal pain, fevers or chills no other new symptoms. Review of Systems Review of Systems: all noted and negative except for above Physical Exam Physical Exam: General- oriented x 3, not in distress, speaks in sentences with no effort or accessory muscle use Eyes- anicteric Neck- no JVD Lungs- right lung: Clear on auscultation Left lung: Diminished breath sounds on all lung [place] Heart- normal rate, regular rhythm; no murmurs Abdomen- normal bowel sounds, Moderately distended abdomen, soft, nontender Extremities- grade 1 lower extremity edema, no calf tenderness Neuro- alert, oriented x 3; no gross focal neurologic deficits Skin- warm & dry Results & Data Results & Data Vital Signs (Past 12 Hours) Vital Signs Temp Pulse Pulse Resp BP BP BP 05/14/25 11:40 36.3 C L 83 18 101/64 05/14/25 08:51 05/14/25 07:40 36.4 C L 85 16 110/74 05/14/25 07:26 61 05/14/25 05:58 05/14/25 05:58 36.7 C 96 H 18 117/73 05/14/25 05:48 91 H 20 05/14/25 05:10 90 05/14/25 04:32 05/14/25 04:00 86 22 118/78 05/14/25 03:30 81 21 112/77 05/14/25 03:00 84 23 112/84 05/14/25 02:51 81 26 H 05/14/25 02:42 83 22 05/14/25 02:30 82 22 103/63 Pulse Ox O2 Del Method 05/14/25 11:40 94 Room Air 05/14/25 08:51 Room Air 05/14/25 07:40 94 Room Air 05/14/25 07:26 05/14/25 05:58 Room Air 05/14/25 05:58 93 Room Air 05/14/25 05:48 97 Room Air 05/14/25 05:10 05/14/25 04:32 Room Air 05/14/25 04:00 95 Room Air 05/14/25 03:30 93 Room Air 05/14/25 03:00 94 05/14/25 02:51 92 05/14/25 02:42 92 05/14/25 02:30 91 all noted and reviewed including below
[2025-05-14 14:49] LABS: Total Protein 6.7 gm/dl (6.0-8.3)
[2025-05-14 14:49] LABS: Lymphocytes, Fluid 45 %; Mono,Macrophage,Mesothelial 51 %; Neutrophils, Fluid 4 %
[2025-05-14 15:19] LABS: Hep B Surface Ag with confirm Negative (Negative)
[2025-05-14 15:24] LABS: Hep C Ab Rflx HepCQuant RNA Negative (Negative)
[2025-05-15] MEDS: MoRPHine SULFATE 4 MG/ML 1 ML CARP\\VIAL IV PRN (00:55)
[2025-05-15] MEDS: cefTRIAXone SODIUM 2,000 MG/50 ML BAG IV SCH (05:14)
[2025-05-15 07:13] LABS: Hematocrit (blood only) 30.6 % (42.0-52.0); Hemoglobin 10.6 g/dL (14.0-18.0); Immature Granulocytes # (auto) 0.02 K/uL (0.01-0.20); Immature Granulocytes % (auto) 0.6 %; Mean Corpuscular Hemoglobin 32.8 pg (25.0-34.0); Mean Corpuscular Volume 94.7 fL (80.0-100.0); Platelet Count 147 K/uL (130-400); RDW Standard Deviation 53.1 fL (36.4-46.3); Red Blood Count 3.23 M/uL (4.70-6.10); White Blood Count 3.30 K/ul (4.8-10.8)
[2025-05-15 07:27] LABS: Hemoglobin A1C 4.4 % (4.5-5.6)
[2025-05-15] MEDS: REMOVE NICODERM PATCH SCH (07:58)
--- NOTE | 2025-05-15 08:03 | Electrocardiogram Report ---
Test Reason : Blood Pressure : */* mmHG Vent. Rate : 88 BPM Atrial Rate : * BPM P-R Int : * ms QRS Dur : 64 ms QT Int : 328 ms P-R-T Axes : * 32 162 degrees QTcB Int : 396 ms Sinus rhythm Low voltage QRS Nonspecific T wave abnormality Abnormal ECG When compared with ECG of 02-Feb-2005 13:14, Marked drop in QRS voltage Confirmed by Mick Mensah ([id number]) on 05/15/2025 8:02:40 AM Referred By: REFERRED SELF Confirmed By: Mick Mensah
[2025-05-15 08:18] LABS: Alanine Aminotransferase 9.0 U/L (7-52); Albumin Globulin Ratio 0.9 (0.9-2); Albumin Level 3.2 gm/dl (3.4-5.0); Alkaline Phosphatase 49.0 U/L (34-104); Anion Gap 7.0 (3-11); Bilirubin,Total 1.6 mg/dl (0.2-1.0); Blood Urea Nitrogen 11.0 mg/dl (6-23); Calcium 9.1 mg/dl (8.6-10.3); Carbon Dioxide 26.0 mmol/L (21-32); Chloride 100.0 mmol/L (98-107); Creatinine Clr Calc Pharmacy 122.3 ml/min; Globulin 3.4 gm/dl (2.5-4.0); Glucose 97.0 mg/dl (70-99(Fasting)); Potassium 4.3 mmol/L (3.5-5.1); Sodium 133.0 mmol/L (136-145); Thyroid Stimulating Hormone 6.403 uIu/ml (0.300-4.500); Total Protein 6.6 gm/dl (6.0-8.3)
[2025-05-15 09:02] LABS: T4 Free Thyroxine 1.15 ng/dl (0.61-1.60)
--- NOTE | 2025-05-15 10:03 | Gastroenterology Progress Note ---
Date of Service May 15, 2025 Assessment & Plan (1) Cirrhosis of liver with ascites: Plan: [place] to be on the basis of alcohol. He has abstained for 2 years. MELD score corrected of 14. However he has significant ascites. More problematic is the associated pleural effusion. Hydrothorax related to ascites and liver disease is predominantly and most often right-sided. Left-sided disease in the absence of right-sided effusions raises the possibility of another source. Consider malignancy infection excetra. Await fluid analysis cytology. In regards to the ascites management will be salt restriction diuretics. I believe he will require further tap while here. I would consider another paracentesis on Saturday. Should follow-up with hepatology at discharge. Await results from pulmonary consult and work in regards to the atypical left-sided hepatic hydrothorax. (2) Pleural effusion: Plan: Left rather than right. Pleural fluid related to ascites is most often right sided. Atypical raises other possibilities. (3) SOB (shortness of breath): Admission and Anticipated Discharge Date Admission Date: May 14, 2025 Subjective Portal hypertension ascites 64-year-old gentleman with history of alcohol use though none x 2 years. Comes in with profound ascites and hydrothorax. 8 L removed yesterday. Clinically does not feel a whole lot better by his report. Feels he can walk a little bit further before shortness of breath or problem. He still has 2-3+ pretibial edema. He has significant abdominal ascites. Decreased air entry at the left base. Chest x-ray post thoracocentesis no pneumothorax. Patient seems confused about the level of his liver disease. Discussed the diagnosis of liver cirrhosis portal hypertension and ascites as a complication. Hepatitis screens pending. Ascites fluid consistent with transudate. No SBP. Review of Systems Review of Systems: Orientated to person place and time, denies chest pain. Notes some shortness of breath similar to symptoms on admission. Notes abdominal distention. Review of systems otherwise negative Physical Exam Physical Exam: Sitting at the edge of the bed no acute distress. Talking on the phone. Decreased air entry at the left base. Heart sounds no S3 Abdomen protuberant with ascites. No guarding rebound or rigidity. 2+ pretibial edema. Results & Data Results & Data Vital Signs (Past 12 Hours) Vital Signs Temp Pulse Resp BP BP Pulse Ox O2 Del Method 05/15/25 08:14 36.3 C L 100 H 18 111/69 95 Room Air 05/15/25 03:48 36.7 C 87 20 105/67 92 Room Air 05/15/25 00:40 36.6 C 78 20 113/65 95 Room Air PG Care Time/CCT Total # of Minutes Spent Total Time Spent with Patient: Total time spent is greater than 50% in coordination of care (as documented) at patient's floor/unit and/or counseling patient: Coding Level of Care Code 52027 SUB INP/OBS CARE 2/35MIN Diagnoses Cirrhosis of liver with ascites K74.60; R18.8 Hepatic cirrhosis type: unspecified hepatic cirrhosis Pleural effusion J90 SOB (shortness of breath) R06.02 (1) Cirrhosis of liver with ascites Hepatic cirrhosis type: unspecified hepatic cirrhosis Qualified Code(s): K74.60 - Unspecified cirrhosis of liver; R18.8 - Other ascites
--- NOTE | 2025-05-15 10:36 | XRay Report ---
SINGLE VIEW PELVIS; 2 VIEWS RIGHT HIP; 2 VIEWS LEFT HIP CLINICAL HISTORY: Bilateral hip pain. FINDINGS: AP views of the pelvis are obtained with AP and frog-leg views of the right and left hip. C omparison is made to study dated 10/17/2012. Correlation made with pelvic CT dated 05/14/2025. There i s no radiographic evidence of acute fracture involving the hips or bony pelvis. A bipolar right hip a rthroplasty is in near anatomic alignment. No periprosthetic lucency is seen. There is avascular necr osis of the left femoral head without clear radiographic evidence of cortical collapse. Mild arthriti c change is seen in the left hip. The sacroiliac joints are normal. Lumbosacral spondylosis is partia lly imaged. There is degenerative sclerosis of the pubic symphysis. Excreted IV contrast fills the bl adder. IMPRESSION: 1. No acute bony abnormality is identified. 2. Avascular necrosis of the left femoral head. 3. A right hip arthroplasty is in near anatomic alignment. Electronically signed by: Damian Patel M.D. 05/15/2025 10:34 AM
--- NOTE | 2025-05-15 10:42 | XRay Report ---
LUMBAR SPINE 3 VIEWS CLINICAL HISTORY: Low back pain. FINDINGS: 3 views of the lumbar spine are correlated with abdominal CT dated 05/14/2025. The skeleta l structures are well mineralized. There is no radiographic evidence of fracture or malalignment. Yun tebral body height and alignment are maintained. The transverse and spinous processes are intact. The re is minimal S-shaped thoracolumbar scoliosis. There is hyperlordosis of the lumbar spine. Advanced facet arthropathy is seen in the mid to lower lumbar region. There is mild multilevel degenerative di sc space narrowing. Degenerative endplate sclerosis is seen in the lower thoracic region. Anterior an d lateral marginal osteophytes are seen throughout. The visualized bony pelvis appears intact. Cardia c arthroplasty is in place. There is avascular necrosis of the left femoral head. There is a nonobstr ucted abdominal bowel gas pattern. Excreted IV contrast filled bladder. There is atherosclerotic calc ification of the abdominal aorta. IMPRESSION: 1. No acute bony abnormality is seen involving the lumbar spine. 2. Osteopenia and spondylotic change as above. 3. Avascular necrosis of the left femoral head. ACT 112: Negative or not required by law. Electronically signed by: Damian Patel M.D. 05/15/2025 10:39 AM
[2025-05-15] MEDS: FUROSEMIDE 20 MG TAB PO SCH (10:59)
[2025-05-15] MEDS: SPIRONOLACTONE 25 MG TAB PO SCH (11:00)
--- NOTE | 2025-05-15 13:25 | Hospitalist Progress Note ---
Date of Service May 15, 2025 Assessment & Plan (1) SOB (shortness of breath): Plan: per admitting service notes with addendum: Assessment and plan below following discussion of case with ED provider and reviewing patient history/pertinent normal/abnormal diagnostic test results. 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 follow-up since hepatic hydrothorax is usually on the right lung Will need repeat paracentesis with albumin on Saturday Lasix plus spironolactone started Will need transplant evaluation as an outpatient hypertension - monitor closely after large-volume paracentesis hyperlipidemia as per records history of PE/DVT (factor V Leiden mutation as per records), status post Xarelto SMV thrombosis as per records GERD, not on maintenance medications DM 2 currently diet controlled, well-controlled remote hemoglobin A1c of 5.5 from 2021 Acute on chronic anemia, hx chronic pancytopenia likely secondary to liver disease (mild hemoglobin drop from baseline, patient denies overt bleeding symptoms) past alcohol abuse Ongoing tobacco abuse (chewing) DVT prophylaxis. SCDs Re: Thrombocytopenia Early ambulation Full code disposition Admitted to [facility] Lives at home Admission and Anticipated Discharge Date Admission Date: May 14, 2025 Subjective seen resting in chair, comfortable, in good spirits States he feels improved compared to yesterday Breathing is improving, denies abdominal pain Denies fevers or chills, nausea or vomiting No other new symptoms Review of Systems Review of Systems: all noted and negative except for above Physical Exam Physical Exam: General- oriented x 3, not in distress, speaks in sentences with no effort or accessory muscle use Eyes- anicteric Neck- no JVD Lungs- mildly decreased breath sounds left lung base Clear on the right Heart- normal rate, regular rhythm; no murmurs Abdomen- normal bowel sounds, (+) significant distention non tender Extremities- gr 1 lower extremity edema, no calf tenderness Neuro- alert, oriented x 3; no gross focal neurologic deficits Skin- warm & dry Results & Data Results & Data Vital Signs (Past 12 Hours) Vital Signs Temp Pulse Resp BP BP Pulse Ox O2 Del Method 05/15/25 12:29 Room Air 05/15/25 12:11 36.3 C L 81 16 95/61 L 94 Room Air 05/15/25 08:14 36.3 C L 100 H 18 111/69 95 Room Air 05/15/25 03:48 36.7 C 87 20 105/67 92 Room Air all noted and reviewed including below
[2025-05-15] MEDS: ALBUMIN 25% 25 GM/100 ML VIAL IV ONE (20:00)
[2025-05-16 07:25] LABS: Hematocrit (blood only) 25.2 % (42.0-52.0); Hemoglobin 8.7 g/dL (14.0-18.0); Mean Corpuscular Hemoglobin 32.5 pg (25.0-34.0); Mean Corpuscular Volume 94.0 fL (80.0-100.0); Platelet Count 101 K/uL (130-400); RDW Standard Deviation 52.6 fL (36.4-46.3); Red Blood Count 2.68 M/uL (4.70-6.10); White Blood Count 2.84 K/ul (4.8-10.8)
--- NOTE | 2025-05-16 08:06 | XRay Report ---
THORACOLUMBAR SPINE 2 VIEWS CLINICAL HISTORY: Thoracic back pain. FINDINGS: AP and lateral views of the thoracolumbar spine are correlated with chest CT dated 05/14/20 25. The skeletal structures are osteopenic. Vertebral body height and alignment appear maintained thr oughout the imaged thoracolumbar spine. Anterior and lateral marginal osteophytes are seen throughout . There is mild S-shaped thoracolumbar scoliosis. Mild multilevel degenerative disc space narrowing i s observed. The visualized transverse and spinous processes appear intact. No bowel obstruction is se en. Atherosclerotic calcification is seen in the abdominal aorta. IMPRESSION: No acute bony abnormality is identified. Dictated: 05/15/2025 10:29 AM Transcribed: 05/16/2025 8:02 AM [place] [id number] [id number] Electronically signed by: Damian Patel M.D. 05/16/2025 8:05 AM
[2025-05-16 08:16] LABS: Alanine Aminotransferase 7.0 U/L (7-52); Albumin Globulin Ratio 1.1 (0.9-2); Albumin Level 2.9 gm/dl (3.4-5.0); Alkaline Phosphatase 42.0 U/L (34-104); Anion Gap 6.0 (3-11); Bilirubin,Total 1.0 mg/dl (0.2-1.0); Blood Urea Nitrogen 13.0 mg/dl (6-23); Calcium 8.7 mg/dl (8.6-10.3); Carbon Dioxide 25.0 mmol/L (21-32); Chloride 101.0 mmol/L (98-107); Creatinine Clr Calc Pharmacy 154.7 ml/min; Globulin 2.7 gm/dl (2.5-4.0); Glucose 96.0 mg/dl (70-99(Fasting)); Iron 41.0 mcg/dl (35-175); Potassium 4.2 mmol/L (3.5-5.1); Sodium 132.0 mmol/L (136-145); Total Iron Binding Cap Calc 137.0 mcg/dl (250-450); Total Protein 5.6 gm/dl (6.0-8.3); Transferrin 98.0 mg/dl (200-360); Transferrin (FE) Percent Satur 30.0 % (20-50)
--- NOTE | 2025-05-16 11:33 | Gastroenterology Progress Note ---
Date of Service May 16, 2025 Assessment & Plan (1) Cirrhosis of liver with ascites: Plan: Retap tomorrow. Continue Lasix Aldactone and salt restriction. Negative hepatic workup for viruses and iron overload. (2) Encephalopathy: Plan: Patient peers to have some underlying cognitive disorder. May be a component of Warnicke's encephalopathy. Doubt acute hepatic encephalopathy as he does not appear confused. Will check an ammonia for completeness. Give thiamine. (3) Recurrent left pleural effusion: Plan: Pulmonary to continue to evaluate atypical left pleural effusion for hepatic hydrothorax Admission and Anticipated Discharge Date Admission Date: May 14, 2025 Subjective Cirrhosis with ascites Feeling well. Hepatitis B and C screens look negative. Iron stores normal. Etiology probably alcohol in the past. Retap on Saturday. Still has significant ascites. Left hydrothorax potentially hepatic though would recommend further pulmonary evaluation as hepatic hydrothorax is most always right-sided. Fluid analysis cytology pending on the thoracocentesis fluid. Ascites fluid is a transudate. He is tolerating Lasix and Aldactone. BUN/creatinine and potassium are okay. At discharge she will follow-up with hepatology. Platelets 138,000 on admission. Makes significant esophageal varices unlikely. Review of Systems Review of Systems: Denies confusion abdominal pain fevers chills chest pain or shortness of breath Physical Exam Physical Exam: Lying in bed no acute distress. Abdominal distention peripheral edema consistent with fluid accumulation and ascites Orientated to person place and time, however does not seem to understand the gravity of this current situation. There may be some underlying cognitive issues. Potentially been a Wernicke's type syndrome patient does not appear to have encephalopathy. Results & Data Results & Data Vital Signs (Past 12 Hours) Vital Signs Temp Pulse Resp BP BP Pulse Ox O2 Del Method 05/16/25 11:04 Room Air 05/16/25 07:22 36.7 C 98 H 18 104/68 94 Room Air 05/16/25 03:51 36.7 C 86 20 97/60 L 92 Room Air 05/16/25 00:02 36.8 C 76 18 95/59 L 95 Room Air PG Care Time/CCT Total # of Minutes Spent Total Time Spent with Patient: Total time spent is greater than 50% in coordination of care (as documented) at patient's floor/unit and/or counseling patient: Coding Level of Care Code 14769 SUB INP/OBS CARE 2/35MIN Diagnoses Cirrhosis of liver with ascites K74.60; R18.8 Hepatic cirrhosis type: unspecified hepatic cirrhosis Encephalopathy G93.40 Recurrent left pleural effusion J90 (1) Cirrhosis of liver with ascites Hepatic cirrhosis type: unspecified hepatic cirrhosis Qualified Code(s): K74.60 - Unspecified cirrhosis of liver; R18.8 - Other ascites
[2025-05-16] MEDS: THIAMINE HCL 100 MG TAB PO SCH (12:51)
--- NOTE | 2025-05-16 15:40 | Hospitalist Progress Note ---
Date of Service May 16, 2025 Assessment & Plan (1) SOB (shortness of breath): Plan: per admitting service notes with addendum: Assessment and plan below following discussion of case with ED provider and reviewing patient history/pertinent normal/abnormal diagnostic test results. 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 follow-up since hepatic hydrothorax is usually on the right lung Will need repeat paracentesis with albumin on Saturday Lasix plus spironolactone started Will need transplant evaluation as an outpatient 05/16 repeat paracentesis tomorrow with albumin before and after : 25mg x 3 bags hypertension - monitor closely after large-volume paracentesis hyperlipidemia as per records history of PE/DVT (factor V Leiden mutation as per records), status post Xarelto SMV thrombosis as per records GERD, not on maintenance medications DM 2 currently diet controlled, well-controlled remote hemoglobin A1c of 5.5 fro m 2021 Acute on chronic anemia, hx chronic pancytopenia likely secondary to liver disease (mild hemoglobin drop from baseline, patient denies overt bleeding symptoms) past alcohol abuse Ongoing tobacco abuse (chewing) DVT prophylaxis. Heparin SC TID Early ambulation Full code disposition Admitted to [facility] Lives at home Admission and Anticipated Discharge Date Admission Date: May 14, 2025 Subjective seen resting in bed, comfortable breathing is ok denies abdominal pain no fever/chills Review of Systems Review of Systems: all noted and negative except for above Physical Exam Physical Exam: General- oriented x 3, not in distress, speaks in sentences with no effort or accessory muscle use Eyes- anicteric Neck- no JVD Lungs- clear BS R decreased BS L lower lung field Heart- normal rate, regular rhythm; no murmurs Abdomen- normal bowel sounds, nondistended, soft, nontender Extremities- gr 1 lower leg edema, no calf tenderness Neuro- alert, oriented x 3; no gross focal neurologic deficits Skin- warm & dry Results & Data Results & Data Vital Signs (Past 12 Hours) Vital Signs Temp Pulse Resp BP BP Pulse Ox O2 Del Method 05/16/25 15:03 36.9 C 93 H 18 98/63 L 96 Room Air 05/16/25 11:04 Room Air 05/16/25 07:22 36.7 C 98 H 18 104/68 94 Room Air 05/16/25 03:51 36.7 C 86 20 97/60 L 92 Room Air
[2025-05-16] MEDS: HEPARIN SOD 5,000 UNIT/0.5 ML VIAL SQ SCH (21:10)
[2025-05-17 00:52] LABS: Hepatitis A Antibody IgM NON-REACTIVE (NON-REACTIVE); Hepatitis B Core Antibody IgM NON-REACTIVE (NON-REACTIVE)
[2025-05-17] MEDS: ALBUMIN 25% 25 GM/100 ML VIAL IV ONE ×2 (06:06→17:56)
[2025-05-17 07:33] LABS: Hematocrit (blood only) 25.9 % (42.0-52.0); Hemoglobin 9.1 g/dL (14.0-18.0); Mean Corpuscular Hemoglobin 33.1 pg (25.0-34.0); Mean Corpuscular Volume 94.2 fL (80.0-100.0); Platelet Count 106 K/uL (130-400); RDW Standard Deviation 53.8 fL (36.4-46.3); Red Blood Count 2.75 M/uL (4.70-6.10); White Blood Count 2.47 K/ul (4.8-10.8)
[2025-05-17 07:47] LABS: Anion Gap 6.0 (3-11); Blood Urea Nitrogen 13.0 mg/dl (6-23); Calcium 8.6 mg/dl (8.6-10.3); Carbon Dioxide 27.0 mmol/L (21-32); Chloride 100.0 mmol/L (98-107); Creatinine Clr Calc Pharmacy 110.2 ml/min; Potassium 3.9 mmol/L (3.5-5.1); Sodium 133.0 mmol/L (136-145)
[2025-05-17 08:11] LABS: INR 1.3 (0.9-1.1); Prothrombin Time 13.3 Seconds (9.0-12.0)
--- NOTE | 2025-05-17 13:31 | Gastroenterology Progress Note ---
Date of Service May 17, 2025 Assessment & Plan (1) Cirrhosis of liver with ascites: Plan [id number] with h/o cirrhosis recently diagnosed. Iron studies and viral serologies negative. Does have history alcohol abuse. (1) Cirrhosis with Ascites - Continue with Lasix 20mg BID and Spironolactone 50mg BID. - Proceed with additional therapeutic paracentesis today. - Ammonia levels 33. Continue with thiamine supplementation. - Recommended daily weights. Limit sodium < 2G/day. - Recommend that he get established with Hepatology. Orders placed to facilitate in scheduling. - Patient will need regular EGD/Varices as baseline evaluation and AFP/Abd US q 6 months for HCC screening which can be done in outpatient. - Thank you for allowing us to participate in the care of this patient. Please call with any acute changes, questions or concerns. Please see addendum below with additional recommendation from my supervising physician. Admission and Anticipated Discharge Date Admission Date: May 14, 2025 Supervising Physician Co-Signing Physician Notes Post repeat paracentesis today. 6 L removed. Tolerated well. BUN/creatinine normal. On Lasix and Aldactone. I believe he can be discharged tomorrow. On current dose of medications. 2 g sodium diet also important. He should follow- up with hepatology. The review of cytology on the pleural fluid appears to be negative for malignancy. At this point it would appear the pleural fluid will it is related to his ascites. Should have follow-up CBC and a CMP 1 week postdischarge to document stable kidney and potassium level Subjective Patient is a 64 yo male with HTN, HLD, PE/DVT, Factor V Leiden, GERD, DM2, mood disorder, tobacco abuse, alcoholic cirrhosis, portal HTN, and alcohol abuse coupled with medical noncompliance. He presented to the ED due to abdominal distention. He was recently admitted to [facility] in March for decompensated cirrhosis, ascites, and large left pleural effusion. He required paracentesis at that time. It is unclear what he was advised to do after that hospitalization and I do not have records of that stay. Over the past 1 week, he notes significant abdominal distention and SOB. He is no longer drinking alcohol and reports it has been years since his last drink. In the ED, a CT of the abdomen/pelvis was performed: IMPRESSION: Gross left pleural effusion with collapse of left lower lobes are seen. Cirrhosis of liver with portal hypertension and gross ascites. Splenomegaly. Large umbilical hernia containing ascitic fluid Bilateral inguinal hernia containing ascitic fluid. Enlarged prostate. MELD Score currently 8. on 05/14/25 he had 8 Liters removed. Today he's scheduled to have an additional paracentesis. He has no concerns today. Denies any fevers, chills, abdominal pain, N/V/D, melena or hematochezia. Social History - Denies drug or tobacco use. States he drank in her early 20s but denies drinking since then. Family history - Denies any Liver disease. Pertinent Diagnostics Ammonia 33. Hepatitis A, B and C negative. Iron studies unremarkable. Autoimmune serologies - Not ordered. Review of Systems Review of Systems: See HPI Physical Exam Physical Exam: Constitutional: NAD. Alert. Answering questions appropriately. Respiratory: Breathing is even, non-labored. Lungs [place] are clear to auscultation anteriorly. Cardiovascular: Regular Rate and Rhythm, no murmurs, rubs or gallops appreciated. Gastrointestinal (Abdomen): Normoactive bowel sounds x4, soft, distended consistent with ascites. Musculoskeletal: Lying in bed comfortably. No peripheral edema. Results & Data Results & Data Vital Signs (Past 12 Hours) Vital Signs Temp Pulse Resp BP Pulse Ox O2 Del Method 05/17/25 07:34 98.2 F 86 16 104/65 94 Room Air PG Care Time/CCT Total # of Minutes Spent Total Time Spent with Patient: Total time spent is greater than 50% in coordination of care (as documented) at patient's floor/unit and/or counseling patient: Coding Level of Care Code 13719 SUB INP/OBS CARE 3/50MIN Diagnoses Cirrhosis of liver with ascites K74.60; R18.8 Hepatic cirrhosis type: unspecified hepatic cirrhosis (1) Cirrhosis of liver with ascites Hepatic cirrhosis type: unspecified hepatic cirrhosis Qualified Code(s): K74.60 - Unspecified cirrhosis of liver; R18.8 - Other ascites
--- NOTE | 2025-05-17 14:23 | Ultrasound Report ---
ULTRASOUND GUIDED PARACENTESIS CLINICAL HISTORY: Ascites COMPARISON STUDY: 05/14/2025 PROCEDURE: The risks, benefits, and alternatives to the procedure were discussed with the patient inc luding the risk of bleeding, infection and injury to adjacent structures. The patient agreed to the procedure and informed written consent was obtained. Following real-time ultrasound localization, the skin was prepped and draped. Following local anesthesia with Xylocaine, the sheath paracentesis need le was inserted and approximately 6 liters of straw-colored fluid was removed by vacuum suction. The patient tolerated the procedure well and no immediate complications were evident. IMPRESSION: Ultrasound-guided paracentesis with removal of 6 liters of ascites. ACT 112: Negative or not required by law. Electronically signed by: Yash Cagle M.D. 05/17/2025 2:21 PM
--- NOTE | 2025-05-17 15:16 | XRay Report ---
XR chest 1V portable HISTORY: 64 years-old Male ff up pleural effusion COMPARISON: 05/14/2025 TECHNIQUE: AP view the chest FINDINGS: Cardiac silhouette is enlarged. Moderate-sized left pleural effusion with left basilar consolidation has decreased in size from prior. No pneumothorax. Pulmonary vascular congestion. Small right pleural effusion. Spondylitic spurring of the spine. IMPRESSION: Moderate-sized left pleural effusion has decreased in size from prior. ACT 112: Negative or not required by law. The above report was generated using voice recognition software. It may contain grammatical, syntax o r spelling errors. Electronically signed by: Ryan Dickens M.D. 05/17/2025 3:15 PM
--- NOTE | 2025-05-17 16:47 | Hospitalist Progress Note ---
Date of Service May 17, 2025 Assessment & Plan (1) SOB (shortness of breath): Plan: per admitting service notes with addendum: Assessment and plan below following discussion of case with ED provider and reviewing patient history/pertinent normal/abnormal diagnostic test results. 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 follow-up since hepatic hydrothorax is usually on the right lung Will need repeat paracentesis with albumin on Saturday Lasix plus spironolactone started Will need transplant evaluation as an outpatient 05/16 repeat paracentesis tomorrow with albumin before and after : 25mg x 3 bags 05/17 repeat paracentesis today IV albumin ordered before and after monitor BP , renal function closely Hypertension - monitor closely after large-volume paracentesis Hyperlipidemia as per records History of PE/DVT (factor V Leiden mutation as per records), status post Xarelto SMV thrombosis as per records GERD, not on maintenance medications DM 2 currently diet controlled, well-controlled remote hemoglobin A1c of 5.5 from 2021 Acute on chronic anemia, hx chronic pancytopenia likely secondary to liver disease (mild hemoglobin drop from baseline, patient denies overt bleeding symptoms) past alcohol abuse Ongoing tobacco abuse (chewing) DVT prophylaxis. Heparin SC TID Early ambulation Full code disposition Admitted to [facility] Lives at home Admission and Anticipated Discharge Date Admission Date: May 14, 2025 Subjective seen resting in bed, comfortable Breathing is okay Denies abdominal pain Does not notice increased urination since diuretic started No fevers or chills Review of Systems Review of Systems: all noted and negative except for above Physical Exam Physical Exam: General- oriented x 3, not in distress, speaks in sentences with no effort or accessory muscle use Eyes- anicteric Neck- no JVD Lungs- decreased breath sounds L lower base Heart- normal rate, regular rhythm; no murmurs Abdomen- normal bowel sounds, moderately distended, soft, no tenderness Extremities-gr 1 lower leg edema, no calf tenderness Neuro- alert, oriented x 3; no gross focal neurologic deficits Skin- warm & dry Results & Data Results & Data Vital Signs (Past 12 Hours) Vital Signs Temp Pulse Resp BP Pulse Ox O2 Del Method 05/17/25 16:01 36.7 C 92 H 16 97/62 L 95 Room Air 05/17/25 07:34 36.8 C 86 16 104/65 94 Room Air all noted and reviewed including below
[2025-05-17] MEDS: DOCUSATE SODIUM/SENNA 50/8.6MG TAB PO SCH (20:46)
[2025-05-17 22:20] LABS: Anion Gap 6.0 (3-11); Blood Urea Nitrogen 13.0 mg/dl (6-23); Carbon Dioxide 27.0 mmol/L (21-32); Chloride 99.0 mmol/L (98-107); Potassium 3.6 mmol/L (3.5-5.1); Sodium 132.0 mmol/L (136-145)
[2025-05-17 22:21] LABS: Calcium 8.6 mg/dl (8.6-10.3); Creatinine Clr Calc Pharmacy 135.6 ml/min; Glucose 112.0 mg/dl (70-99(Fasting))
[2025-05-18 06:39] LABS: Hematocrit (blood only) 24.6 % (42.0-52.0); Hemoglobin 8.6 g/dL (14.0-18.0); Immature Granulocytes # (auto) 0.00 K/uL (0.01-0.20); Immature Granulocytes % (auto) 0.0 %; Mean Corpuscular Hemoglobin 32.7 pg (25.0-34.0); Mean Corpuscular Volume 93.5 fL (80.0-100.0); Platelet Count 102 K/uL (130-400); RDW Standard Deviation 53.2 fL (36.4-46.3); Red Blood Count 2.63 M/uL (4.70-6.10); White Blood Count 2.15 K/ul (4.8-10.8)
[2025-05-18 07:03] LABS: Alanine Aminotransferase 7.0 U/L (7-52); Albumin Globulin Ratio 1.2 (0.9-2); Albumin Level 2.8 gm/dl (3.4-5.0); Alkaline Phosphatase 37.0 U/L (34-104); Anion Gap 6.0 (3-11); Bilirubin,Total 1.0 mg/dl (0.2-1.0); Blood Urea Nitrogen 12.0 mg/dl (6-23); Calcium 8.6 mg/dl (8.6-10.3); Carbon Dioxide 26.0 mmol/L (21-32); Chloride 101.0 mmol/L (98-107); Creatinine Clr Calc Pharmacy 137.0 ml/min; Globulin 2.4 gm/dl (2.5-4.0); Glucose 125.0 mg/dl (70-99(Fasting)); Potassium 3.8 mmol/L (3.5-5.1); Sodium 133.0 mmol/L (136-145); Total Protein 5.2 gm/dl (6.0-8.3)
[2025-05-18] MEDS: POLYETHYLENE (MIRALAX) 17 GM PACK PO PRN (09:17)
[2025-05-18] MEDS: INFLUENZA VACC TS2025-26(6m+)/PF (IIV3) 0.5mL Syr IM ONE (10:35)
--- NOTE | 2025-05-18 17:18 | Hospitalist Progress Note ---
Date of Service May 18, 2025 Assessment & Plan (1) SOB (shortness of breath): Plan: per admitting service notes with addendum: Assessment and plan below following discussion of case with ED provider and reviewing patient history/pertinent normal/abnormal diagnostic test results. 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 -- 05/14: status post paracentesis, 8 L removed, Ascites fluid culture: negative given total of 75 g given status post thoracenteses, 2 L removed, pleural fluid culture: Negative -- 05/17 status post paracentesis, 6 L removed Renal function stable after paracentesis Blood pressure today on the lower side Hold Lasix and Aldactone that were initiated here will need to be established and closely follow-up with the PCP, GI service clinic, hepatology clinic for transplant evaluation Hypertension - BP on the lower side today - monitor closely may need Midodrine Hyperlipidemia as per records History of PE/DVT (factor V Leiden mutation as per records), status post Xarelto SMV thrombosis as per records GERD, not on maintenance medications DM 2 currently diet controlled, well-controlled remote hemoglobin A1c of 5.5 from 2021 Acute on chronic anemia, hx chronic pancytopenia likely secondary to liver disease (mild hemoglobin drop from baseline, patient denies overt bleeding symptoms) past alcohol abuse Ongoing tobacco abuse (chewing) DVT prophylaxis. Heparin SC TID Early ambulation Full code Disposition Admitted to [facility] Lives at home Admission and Anticipated Discharge Date Admission Date: May 14, 2025 Subjective seen resting in bed, sleeping but easily awakened States he feels fine overall Denies shortness of breath Denies abdominal pain No dizziness upon ambulating today No fevers or chills, no other new symptoms Review of Systems Review of Systems: all noted and negative except for above Physical Exam Physical Exam: General- oriented x 3, not in distress, speaks in sentences with no effort or accessory muscle use Eyes- anicteric Neck- no JVD Lungs- right lung: Clear breath sounds, left: Decreased breath sounds left lower lung zone Heart- normal rate, regular rhythm; no murmurs Abdomen- normal bowel sounds, moderately distended, soft Extremities-gr 1 lower extremity edema, no calf tenderness Neuro- alert, oriented x 3; no gross focal neurologic deficits Skin- warm & dry Results & Data Results & Data Vital Signs (Past 12 Hours) Vital Signs Temp Pulse Resp BP Pulse Ox O2 Del Method 05/18/25 14:53 36.8 C 86 18 91/56 L 95 Room Air 05/18/25 09:15 Room Air 05/18/25 07:40 36.9 C 79 16 92/61 L 94 Room Air all noted and reviewed including below
[2025-05-18] MEDS: ALBUMIN 25% 25 GM/100 ML VIAL IV ONE (23:03)
[2025-05-19 00:04] VITALS: RESP 20
[2025-05-19 07:13] LABS: Hematocrit (blood only) 23.6 % (42.0-52.0); Hemoglobin 8.4 g/dL (14.0-18.0); Immature Granulocytes # (auto) 0.01 K/uL (0.01-0.20); Immature Granulocytes % (auto) 0.5 %; Mean Corpuscular Hemoglobin 33.3 pg (25.0-34.0); Mean Corpuscular Volume 93.7 fL (80.0-100.0); Platelet Count 117 K/uL (130-400); RDW Standard Deviation 53.1 fL (36.4-46.3); Red Blood Count 2.52 M/uL (4.70-6.10); White Blood Count 2.21 K/ul (4.8-10.8)
[2025-05-19 07:30] LABS: Alanine Aminotransferase 8.0 U/L (7-52); Albumin Globulin Ratio 1.2 (0.9-2); Albumin Level 2.9 gm/dl (3.4-5.0); Alkaline Phosphatase 45.0 U/L (34-104); Anion Gap 4.0 (3-11); Bilirubin,Total 0.7 mg/dl (0.2-1.0); Blood Urea Nitrogen 12.0 mg/dl (6-23); Calcium 8.8 mg/dl (8.6-10.3); Carbon Dioxide 27.0 mmol/L (21-32); Chloride 103.0 mmol/L (98-107); Creatinine Clr Calc Pharmacy 159.6 ml/min; Globulin 2.4 gm/dl (2.5-4.0); Glucose 108.0 mg/dl (70-99(Fasting)); Potassium 3.9 mmol/L (3.5-5.1); Sodium 134.0 mmol/L (136-145); Total Protein 5.3 gm/dl (6.0-8.3)
[2025-05-19 07:59] VITALS: BP 108/62; PULSE 83; TEMP 97.9; O2SAT 93
--- NOTE | 2025-05-19 09:39 | XRay Report ---
XR chest 1V portable CLINICAL HISTORY: f/u on pleural effusion COMPARISON STUDY: 05/17/2025 FINDINGS: Stable cardiomegaly with mild pulmonary vascular congestion. Stable moderate left pleural e ffusion and associated lung base consolidation. No pneumothorax. Right lung remains well aerated. IMPRESSION: Stable exam. ACT 112: Negative or not required by law. Electronically signed by: Yash Cagle M.D. 05/19/2025 9:38 AM
--- NOTE | 2025-05-19 16:26 | Discharge Summary ---
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 -- 05/14: status post paracentesis, 8 L removed, Ascites fluid culture: negative given total of 75 g given status post thoracenteses, 2 L removed, pleural fluid culture: Negative -- 05/17 status post paracentesis, 6 L removed Renal function stable after paracentesis Blood pressure today on the lower side Hold Lasix and Aldactone that were initiated here will need to be established and closely follow-up with the PCP, GI service clinic, hepatology clinic for transplant evaluation Hypertension - BP on the lower side today Hyperlipidemia as per records History of PE/DVT (factor V Leiden mutation as per records), status post Xarelto SMV thrombosis as per records GERD, not on maintenance medications DM 2 currently diet controlled, well-controlled remote hemoglobin A1c of 5.5 from 2021 Acute on chronic anemia, hx chronic pancytopenia likely secondary to liver disease (mild hemoglobin drop from baseline, patient denies overt bleeding symptoms) past alcohol abuse Ongoing tobacco abuse (chewing) DVT prophylaxis. Heparin SC TID Early ambulation Full code Disposition Admitted to [facility] Lives at home Notes For Next Care Provider 64 yo male with pmhx of hypertension, hyperlipidemia, history of PE/DVT status post Xarelto, SMV thrombosis as per records, factor V Leiden mutation as per records, alcoholic cirrhosis, portal hypertension, GERD, DM 2 currently diet controlled, chronic pancytopenia (baseline hemoglobin of 11), mood disorder, past alcohol abuse, current tobacco chewing who presented for significant abdominal distension. Found to have decompensated cirrhosis, admitted to medicine. On medicine, GI consulted, recommended paracentesis. Pulm consulted for large pleural effusion likely hepatic hydrothorax which was drained, repeat xr showed stability of remaining effusion. Got 3 different paracentesis over course of admission with improvement in symptoms. GI recommending outpatient follow up. Will need transplant evaluation as well. Will need likely weekly paracentesis. Discussed with patient at length plan for repeat paracentesis, need for medication compliance, f/u with PCP and transplant evaluation. Patient states he is in agreement. On 05/19/2025 patient medically stable for discharge home. To do: [ ] take medications as prescribed [ ] weekly paracentesis (discussed with IR coordinator, sent in script, appt made) [ ] titrate medications outpatient [ ] f/u with ortho for avascular necrosis, maybe surgery for hernias if needed -Incidental Findings: avascular necrosis of left femoral head, osteopenia, inguinal and umbilical hernias Medication Changes From Visit -see below Admission HPI Per Admitting Provider History obtained from patient and records. Medical history significant for hypertension, hyperlipidemia, history of PE/DVT status post Xarelto, SMV thrombosis as per records, factor V Leiden mutation as per records, alcoholic cirrhosis, portal hypertension, GERD, DM 2 currently diet controlled, chronic pancytopenia (baseline hemoglobin of 11), mood disorder, past alcohol abuse, current tobacco chewing, medical noncompliance. Patient has not seen PCP or taken home medications for about 2 years now due to financial constraints. Recent admitted at [facility] last March 20-2024 for decompensated cirrhosis presenting as massive ascites and large left pleural effusion. Large-volume paracenteses (6 L) and thoracenteses done as per report. Fluid analysis results unknown to patient. TTE showed no pericardial effusion and ejection fraction of 65%. Patient claims he was discharged home without home meds and explanation for reason for fluid accumulation. Last week, patient noted increasing painful abdominal distention associated with SOB. No unusual cough symptoms. No fever, no chills. Denies chest pain. Denies black or bloody stools. Last EtOH intake was years ago as per patient. EMS called to patient's home. O2 sats 88 on room air. IV Lasix, ceftriaxone and albumin administered at the ER. Medical History as above Surgical History : Knee surgery, appendectomy, tonsillectomy, hip replacement, tonsillectomy/adenoidectomy, back surgery, Family History : Heart disease, Crohn's disease, leukemia Personal/Social history : Tobacco chewing, past alcohol abuse, retired from heavy machinery equipment operation Discharge Exam Gen: A&O 3 NAD HEENT: NCAT, EOMI, not icteric. External ears normal. No rhinorrhea. Moist mucous membranes. Neck: Supple, full range of motion, no observable masses, No meningeal sign. Lungs: No Respiratory distress. CV: RRR, no edema. Abdomen: Soft, moderately distended, mild fluid wave present, per patient much smaller than prior MSK: No joint swelling, no redness. Skin: No rashes, petechiae, lesions. Normal color per patient. Neuro: Normal Gait, Grossly intact. Psych: Appropriate for situation. Updated Medication List Medication Instructions Recorded Confirmed Type furosemide 20 mg tablet 20 mg PO BID17 60 days #60 tabs 05/19/25 Rx lactulose 10 gram/15 mL oral 10 g (15 mL) PO BID PRN 05/19/25 Rx solution constipation/confusion #1,200 mL nicotine 7 mg/24 hr daily 1 patch transdermal QAM #14 ea 05/19/25 Rx transdermal patch spironolactone 25 mg tablet 50 mg (2 x 25 mg) PO DAILY #30 tabs 05/19/25 Rx thiamine HCl (vitamin B1) 100 mg 100 mg PO QAM 30 days #30 tabs 05/19/25 Rx tablet Hospital Stay Data Consultations 05/14/25 03:20 ED Decision to Admit Stat 05/14/25 04:13 Consult Gastroenterology Routine Consult Pulmonology Routine Diagnostic Imagining Performed 05/14/25 01:04 CT abd pelvis IV con only Stat 05/14/25 01:32 CT angio chest PE protocol Stat 05/14/25 08:00 IR paracentesis abd w/img US Routine 05/17/25 00:00 IR paracentesis abd w/img US Routine Pending Results Patient Have Any Pending Studies at Discharge: No Discharge Instructions Given to Patient (Per Discharging Provider) Diagnosis: alcoholic decompensate cirrhosis, hepatic hydrothorax Incidental Findings: avascular necrosis of left femoral head, osteopenia, inguinal and umbilical hernias Follow Ups: PCP, ortho, GI, transplant team, IR team for paracentesis drainage 1. Please follow up with PCP, IR team (will reach out to you about scheduling paracentesis so stomach does not get larger), GI team (for transplant consideration), ortho (for avascular necrosis of left femoral head). 2. Please take your medications as prescribed. 3. Get blood work in one week. You are scheduled for a Paracentesis at [facility] on SaturdayMay 24 at 11:30 am. Please check in at the Main Entrance by 11:20 am. You may eat breakfast, wait until after your appointment to have lunch You must have a team driver to take you home Take your medications as prescribed If you have any questions or if you need to reschedule, please call , ext [phone] Total Time Total Time Spent Total Time Spent (In Minutes): I spent a total of [X] minutes in direct patient care, including [id number] time with the patient and/or family, reviewing medical records, ordering and reviewing diagnostic tests, and coordinating care with other healthcare providers. This time includes: history taking, physical examination, medical decision making, counseling, ECG interpretation, imaging interpretation, lab interpretation, orders, and education, excluding time spent in the performance of separately billed services.
== END 2025-05-19 18:11 | disposition home or self-care (01) | DRG 432 ==
LOC: ED 00:46 → SUATTDRO 03:31 → 2W 03:31